=== PATIENT | female | born 1935 | race Hispanic/Latino ===

== ENCOUNTER 2018-07-20 15:44 | Inpatient (IN) | payer MEDICARE, MEDICAID ==
--- NOTE | 2018-07-20 17:02 | RAD ---
Date of service: 07/20/2018 PROCEDURE: HISTORY: fall 5 days ago, gait apraxia, ? hip/pelvic fx COMPARISON: None TECHNIQUE: AP pelvis and frog's leg view. FINDINGS: Irregularity to the inferior per left pubic ring boarding a inferior left acetabulum is noted. This may represent a fracture possibly osseous avulsion of unknown chronicity. No proximal femoral fractures seen. Bilateral hip joint arthrosis. Inferior lumbar spondylosis and degenerative disc disease. Probable tiny 2 mm right hemipelvic phleboliths. Unremarkable pubic symphysis. Right vascular calcifications IMPRESSION: Left inferior pubic ring cortical irregularity and lucency probably relating to trauma/osseous avulsion- the chronicity of this is unknown. Consider noncontrast CT of the hip including the left hemipelvis for clarification if indicated. Study marked for PA review
--- NOTE | 2018-07-20 17:05 | RAD ---
Date of service: 07/20/2018 PROCEDURE: Radiographs of the Lumbar Spine. HISTORY: fall 5 days ago, cant walk, ? comp fx COMPARISON: No prior. FINDINGS: BONES: Rightward thoracolumbar convexity. Exuberant anterior and marginal osteophytosis inferior thoracic level and lumbar levels. Probable lumbar level prominent Schmorl's node indentations. Some decreased height of the inferior thoracic spine is also noted - its chronicity also was unknown may be in large part degenerative wedging. Correlation is needed in terms of patient's site of pain. No more inferior lumbar level compression fractures suggested. DISC SPACES: Diffuse disc space narrowing at all lumbar levels OTHER FINDINGS: Facet hypertrophic arthrosis most notable from L3-4 through including L5-S1. IMPRESSION: No lumbar level suspect compression fracture. Degenerative extensive thoraco lumbar spondylosis noted. An scoliosis. Degenerative disc disease changes and exuberant facet hypertrophic arthrosis. The portions of the inferior thoracic spine which are not visually included on this exam have some mild decreased suggested vertebral body heights the chronicity of this appearance is unknown -in this patient's spine degenerative wedging is a consideration. Clinical correlation is needed in terms of patient's level of pain (thoracic or lumbar)
--- NOTE | 2018-07-20 17:08 | RAD ---
Date of service: 07/20/2018 PROCEDURE: CHEST RADIOGRAPH, 1 VIEW HISTORY: SOB COMPARISON: 11/05/2015 FINDINGS: LUNGS: No interval consolidation A 78 mm nodular opacity projects over the left lung base just above the elevated left hemidiaphragm. This is not seen with certainty on the 2015 exam. Its etiology is uncertain. Diagnosis of exclusion is a left pulmonary nodule. The is unlikely to be a nipple shadow. Although this is not excluded. PLEURA: No pneumothorax. A minimal left pleural effusion and/or chronic left inferolateral pleural thickening in this patient with a stable asymmetrically elevated left hemidiaphragm is a consideration. The blunted appearance the left costophrenic angle is not significantly changed since 2015. CARDIOVASCULAR: Cardiomegaly. Tortuous unfolded thoracic aorta. The widened mediastinal appearance is stable since 2015. Probable minimal pulmonary venous congestion -not significantly changed. OSSEOUS STRUCTURES: Diffuse thoracic upper lumbar spondylosis. VISUALIZED UPPER ABDOMEN: Normal. OTHER FINDINGS: None. IMPRESSION: 78 mm faint nodular opacity projecting just above the elevated left hemidiaphragm of indeterminate significance, if any). Not appreciated such on prior studies. Consider noncontrast CT chest for further clarification. Other changes similar as above
--- NOTE | 2018-07-20 17:12 | C.PDOC ---
History Of Present Illness 82 year old female patient brought to the ER by EMS from home with home nurse with c/o not being able to walk for x5 days. Patient reports she fell from chair and landed on her buttocks. Denies lower back and hip pain. Patient is non -compliant with Lasix due to having to urinate frequently. Patient has unknown PMD, but her nurse Emi at bedside specifically ask for Bonilla Green to treat the patient. Time Seen by Provider: 07/20/18 16:08 Chief Complaint (Nursing): Lower Extremity Problem/Injury History Per: Patient History/Exam Limitations: no limitations Onset/Duration Of Symptoms: Days (x5) Current Symptoms Are (Timing): Still Present Past Medical History Reviewed: Historical Data, Nursing Documentation, Vital Signs Vital Signs: Last Vital Signs Temp 98.8 F 07/20/18 17:40 Pulse 92 H 07/20/18 17:40 Resp 18 07/20/18 17:40 BP 153/75 H 07/20/18 17:40 Pulse Ox 97 07/20/18 18:16 - Medical History PMH: Anxiety, Arthritis, Asthma, HTN, Hypothyroidism Surgical History: Cholecystectomy - [facility] Procedures CLOSURE SKIN & SUBCUTANEOUS NEC (09/12/14) Family History: States: Unknown Family Hx - Social History Hx Tobacco Use: No Hx Alcohol Use: No Hx Substance Use: No - Immunization History Hx Tetanus Toxoid Vaccination: No Hx Influenza Vaccination: No Hx Pneumococcal Vaccination: No Review Of Systems Except As Marked, All Systems Reviewed And Found Negative. Constitutional: Positive for: Other (unable to walk) Musculoskeletal: Negative for: Back Pain, Other (hip pain) Physical Exam - Physical Exam Appears: Non-toxic, No Acute Distress, Other (elderly ) Skin: Normal Color, Warm, Dry Head: Atraumatic, Normacephalic Eye(s): bilateral: Normal Inspection Throat: Normal Neck: Normal ROM, Supple, Other (mild JVD) Chest: No Deformity Cardiovascular: Rhythm Regular, Murmur (holosystolic ) Respiratory: Rales (mild), No Rhonchi, No Wheezing Gastrointestinal/Abdominal: Soft, No Tenderness Back: No CVA Tenderness Extremity: Pedal Edema (b/l; symmetrical), No Other (cellulitis) Pulses: Left Dorsalis Pedis: Normal, Right Dorsalis Pedis: Normal Neurological/Psych: Oriented x3, Normal Speech ED Course And Treatment - Laboratory Results Result Diagrams: 07/20/18 18:46 07/20/18 18:46 Lab Interpretation: Normal (trop/bnp neg.) ECG: Interpreted By Me ECG Rhythm: Sinus Rhythm ECG Interpretation: Normal Rate From EC O2 Sat by Pulse Oximetry: 97 (RA) Pulse Ox Interpretation: Normal - Radiology CXR: Interpreted by Me CXR Interpretation: Yes: Heart Size, Other (+ mild CHF) - Other Rad XR Hip X-Ray: Read By Radiologist Interpretation: IMPRESSION: Left inferior pubic ring cortical irregularity and lucency probably relating to trauma/osseous avulsion- the chronicity of this is unknown. Consider noncontrast CT of the hip including the left hemipelvis for clarification if indicated. LS spine XR X-Ray: Read By Radiologist Interpretation: IMPRESSION: No lumbar level suspect compression fracture. Degenerative extensive thoraco lumbar spondylosis noted. An scoliosis. Degenerative disc disease changes and exuberant facet hypertrophic arthrosis. The portions of the inferior thoracic spine which are not visually included on this exam have some mild decreased suggested vertebral body heights the chronicity of this appearance is unknown -in this patient's spine degenerative wedging is a consideration. Clinical correlation is needed in terms of patient' s level of pain (thoracic or lumbar) CXR X-Ray: Read By Radiologist Interpretation: IMPRESSION: 78 mm faint nodular opacity projecting just above the elevated left hemidiaphragm of indeterminate significance, if any). Not appreciated such on prior studies. Consider noncontrast CT chest for further clarification. - CT Scan/US CT head Other Rad Studies (CT/US): Read By Radiologist, Radiology Report Reviewed CT/US Interpretation: IMPRESSION: Mild to moderate chronic white matter ischemic changes as above. Note that the possibility of a small hyperacute infarct not excluded. Mild generalized volume loss Reevaluation Time: 19:30 Reassessment Condition: Improved - Physician Consult Information Outcome Of Conversation: 1630, 1930: d/w Dr. Rachelle Green- darryn PMD- ok to admit to tele Medical Decision Making Medical Decision Making: Impression: unable to ambulate Plans: -- CT head w/o contrast -- EKG -- blood work -- CXR -- Lasix -- XR hip -- XR LS spine -- UA 3 failed attempt left EJ. Right EJ after second attempt. gait apraxia from fall 5 days ago ? deconditioned vs back pain LS and hip/pelvis films neg. JESUS ALBERTO plan for d/c. Leg edema + JVD bnp neg. CHF vs renal (low alb) lasix re-started in ED posadas for fluid output measurement IV access: poor access R EJ placed by ED MD Consider PICC line Disposition Doctor Will See Patient In The: Hospital Counseled Patient/Family Regarding: Studies Performed, Diagnosis - Disposition Disposition: HOSPITALIZED Disposition Time: 19:35 Condition: GOOD Forms: TNC (Micronesian) - Clinical Impression Clinical Impression: Leg edema, CHF (congestive heart failure), Gait apraxia of elderly - Scribe Statement The provider has reviewed the documentation as recorded by the Kishoreibnic [place] Do Provider Attestation: All medical record entries made by the Kishoreibe were at my direction and personally dictated by me. I have reviewed the chart and agree that the record accurately reflects my personal performance of the history, physical exam, medical decision making, and the department course for this patient. I have also personally directed, reviewed, and agree with the discharge instructions and disposition.
--- NOTE | 2018-07-20 17:34 | CT ---
Date of service: 07/20/2018 PROCEDURE: CT HEAD WITHOUT CONTRAST. HISTORY: Gait apraxia, fall 5 d ago, ? SDH COMPARISON: Comparison made with prior CT scan brain dated 09/13/2014. TECHNIQUE: Axial computed tomography images were obtained through the head/brain without intravenous contrast. Radiation dose: Total exam DLP = 988.04 mGy-cm. This CT exam was performed using one or more of the following dose reduction techniques: Automated exposure control, adjustment of the mA and/or kV according to patient size, and/or use of iterative reconstruction technique. FINDINGS: HEMORRHAGE: No acute parenchymal, subarachnoid nor extra-axial hemorrhage. BRAIN: Mild moderate diffuse/confluent chronic periventricular white matter ischemic changes seen extending peripherally into the deep subcortical white matter both cerebral hemispheres where peripherally, the changes exhibit more patchy appearance. Note the possibility of a small hyperacute infarct not excluded. No obvious parenchymal nor extra-axial mass or collection identified on this noncontrast study. Mild generalized volume loss. Minor vascular calcifications both carotid siphons and vertebral arteries. . VENTRICLES: No obstructive hydrocephalus. CALVARIUM: There are no acute calvarial fractures. Mild hyperostosis frontalis interna PARANASAL SINUSES: Unremarkable as visualized. No significant inflammatory changes. MASTOID AIR CELLS: Re- demonstrated are partial opacification or incomplete excavation several bilateral inferior mastoid air cells. Remaining visualized mastoid air complexes are otherwise clear OTHER FINDINGS: Changes of bilateral cataract surgery IMPRESSION: Mild to moderate chronic white matter ischemic changes as above. Note that the possibility of a small hyperacute infarct not excluded. Mild generalized volume loss
[2018-07-20 18:50] LABS: BASO % 0.5 % (0.0-2.0); EOS # 0.1 K/uL (0.0-0.7); EOS % 2.9 % (0.0-4.0); HEMOGLOBIN 12.5 g/dL (11.0-16.0); LYMPH # 1.5 K/uL (1.0-4.3); LYMPH % 44.7 % (20.0-40.0); MEAN CORPUSCULAR HEMOGLOBIN 35.9 pg (27.0-31.0); MEAN CORPUSCULAR HGB CONC 34.4 g/dL (33.0-37.0); MEAN PLATELET VOLUME 6.6 fL (7.2-11.7); MONO # 0.4 K/uL (0.0-0.8); MONO % 11.2 % (0.0-10.0); NEUT # 1.4 K/uL (1.8-7.0); NEUT % 40.7 % (50.0-75.0); NRBC % 0.2 % (0.0-2.0); RBC 3.49 Mil/uL (3.80-5.20); RED CELL DISTRIBUTION WIDTH 14.5 % (11.5-14.5); WHITE BLOOD COUNT 3.4 K/uL (4.8-10.8)
[2018-07-20 18:52] LABS: MEAN CELL VOLUME 104.4 fL (81.0-99.0)
[2018-07-20 18:58] LABS: INR 1.5; PROTHROMBIN TIME 16.7 SECONDS (9.7-12.2)
[2018-07-20 18:58] LABS: SQUAMOUS EPITHIAL < 1 /hpf (0-5); URINE BACTERIA RARE (<OCC); URINE BILIRUBIN NEGATIVE (NEGATIVE); URINE BLOOD 1+ (NEGATIVE); URINE CLARITY Clear (Clear); URINE COLOR Straw (YELLOW); URINE GLUCOSE (UA) NORMAL (Normal); URINE LEUKOCYTE ESTERASE NEG Leu/uL (Negative); URINE PROTEIN NEGATIVE (NEGATIVE); URINE UROBILINOGEN NORMAL mg/dL (0.2-1.0)
[2018-07-20 19:02] LABS: ALB/GLOB RATIO 0.9 (1.0-2.1); ALBUMIN 2.8 g/dL (3.5-5.0); ALT/SGPT 31 U/L (9-52); AST/SGOT 67 U/L (14-36); BLOOD UREA NITROGEN 12 mg/dL (7-17); CALCIUM 8.7 mg/dl (8.6-10.4); GFR NON-AFRICAN AMERICAN > 60
[2018-07-20 19:13] LABS: B-TYPE NATRIURETIC PEPTIDE 116 pg/mL (0-900)
[2018-07-20] MEDS: Vancomycin 1 gm/NS 200 ml 1 GM/200 ML BAG IVPB SCH (22:54)
--- NOTE | 2018-07-20 23:32 | CP.PCM.HP ---
Past Patient History - Past Medical History & Family History Past Medical History?: Yes - Past Social History Smoking Status: Never Smoked - CARDIAC Hx Cardiac Disorders: Yes Hx Hypertension: Yes - PULMONARY Hx Respiratory Disorders: Yes Hx Asthma: Yes - NEUROLOGICAL Hx Neurological Disorder: No - HEENT Hx HEENT Problems: No - RENAL Hx Chronic Kidney Disease: No - ENDOCRINE/METABOLIC Hx Endocrine Disorders: Yes Hx Hypothyroidism: Yes - HEMATOLOGICAL/ONCOLOGICAL Hx Blood Disorders: No - INTEGUMENTARY Hx Dermatological Problems: No - MUSCULOSKELETAL/RHEUMATOLOGICAL Hx Musculoskeletal Disorders: Yes Hx Arthritis: Yes Hx Falls: Yes - GASTROINTESTINAL Hx Gastrointestinal Disorders: No - GENITOURINARY/GYNECOLOGICAL Hx Genitourinary Disorders: No - PSYCHIATRIC Hx Psychophysiologic Disorder: Yes Hx Anxiety: Yes Hx Substance Use: No - SURGICAL HISTORY Hx Surgeries: Yes Hx Cholecystectomy: Yes - ANESTHESIA Hx Anesthesia: Yes Hx Anesthesia Reactions: No Hx Malignant Hyperthermia: No Has any member of the family had a problem w/ anesthesia?: No Meds Allergies/Adverse Reactions: Allergies Allergy/AdvReac Type Severity Reaction Status Date / Time aspirin Allergy Verified 07/20/18 16:03 codeine Allergy Verified 07/20/18 16:03 cortisone Allergy Verified 07/20/18 16:03 lidocaine Allergy Verified 07/20/18 16:03 Penicillins Allergy Verified 07/20/18 16:03 Results - Vital Signs Recent Vital Signs: Last Vital Signs Temp 98.2 F 07/20/18 21:25 Pulse 89 07/20/18 21:25 Resp 20 07/20/18 21:25 BP 149/61 07/20/18 21:25 Pulse Ox 96 07/20/18 21:25 - Labs Result Diagrams: 07/20/18 18:46 07/20/18 18:46 Labs: Laboratory Results - last 24 hr 07/20/18 07/20/18 07/20/18 16:28 18:46 18:46 WBC 3.4 L RBC 3.49 L Hgb 12.5 D Hct 36.5 MCV 104.4 H D MCH 35.9 H MCHC 34.4 RDW 14.5 Plt Count 172 D MPV 6.6 L Neut % (Auto) 40.7 L Lymph % (Auto) 44.7 H [place] % (Auto) 11.2 H Eos % (Auto) 2.9 Baso % (Auto) 0.5 Neut # (Auto) 1.4 L Lymph # (Auto) 1.5 [place] # (Auto) 0.4 Eos # (Auto) 0.1 Baso # (Auto) 0.0 PT 16.7 H INR 1.5 APTT 26 Sodium Potassium Chloride Carbon Dioxide Anion Gap BUN Creatinine Est GFR ( Amer) Est GFR (Non-Af Amer) POC Glucose (mg/dL) 114 H Random Glucose Calcium Total Bilirubin AST ALT Alkaline Phosphatase Troponin I NT-Pro-B Natriuret Pep Total Protein Albumin Globulin Albumin/Globulin Ratio Urine Color Urine Clarity Urine pH Ur Specific [place] Urine Protein Urine Glucose (UA) Urine Ketones Urine Blood Urine Nitrate Urine Bilirubin Urine Urobilinogen Ur Leukocyte Esterase Urine WBC (Auto) Urine RBC (Auto) Ur Squamous Epith Cells Urine Bacteria 07/20/18 07/20/18 18:46 18:51 WBC RBC Hgb Hct MCV MCH MCHC RDW Plt Count MPV Neut % (Auto) Lymph % (Auto) [place] % (Auto) Eos % (Auto) Baso % (Auto) Neut # (Auto) Lymph # (Auto) [place] # (Auto) Eos # (Auto) Baso # (Auto) PT INR APTT Sodium 144 Potassium 3.7 Chloride 111 H Carbon Dioxide 28 Anion Gap 9 L BUN 12 Creatinine 0.5 L Est GFR ( Amer) > 60 Est GFR (Non-Af Amer) > 60 POC Glucose (mg/dL) Random Glucose 77 Calcium 8.7 Total Bilirubin 2.8 H AST 67 H ALT 31 Alkaline Phosphatase 122 Troponin I < 0.0120 NT-Pro-B Natriuret Pep 116 Total Protein 5.9 L Albumin 2.8 L Globulin 3.2 Albumin/Globulin Ratio 0.9 L Urine Color Straw Urine Clarity Clear Urine pH 7.0 Ur Specific [place] 1.003 Urine Protein Negative Urine Glucose (UA) Normal Urine Ketones Negative Urine Blood 1+ H Urine Nitrate Negative Urine Bilirubin Negative Urine Urobilinogen Normal Ur Leukocyte Esterase Neg Urine WBC (Auto) < 1 Urine RBC (Auto) 2 Ur Squamous Epith Cells < 1 Urine Bacteria Rare
[2018-07-21] MEDS: Albuterol-Ipratrop 3 mg / 0.5 (3 ml) UD INH SCH ×4 (06:01→19:36)
[2018-07-21] MEDS: Pantoprazole 40 mg EC Tab PO SCH (09:12)
--- NOTE | 2018-07-21 10:49 | CP.PCM.PN ---
Subjective - Date & Time of Evaluation Date of Evaluation: 07/21/18 Time of Evaluation: 13:02 - Subjective Subjective: PGY 3 Med Note- Dr. Rachelle Green's service CC: leg pain 82 year old female with past medical history significant for HTN, asthma, arthritis and suspected lymphedema presents with complaints of leg pain. Patient states that she sustained a fall approximately 2 weeks ago. Per ED note , she fell from a chair and landed on her rear end. Patient has been unable to walk at her norm for the past five days. Patient admits to leg pain, tender to palpation with difficulties ambulating. Patient is not able to provide a thorough history at this time. Difficult to obtain ROS as well. PMHx- as stated above- though limited PSHx- knee surgery, cholecystecomy and appendectomy Fam Hx- Unknown Medications- Patient is unsure Scoail- Former smoker of 1 pack every 2 days. Patient smoked over 40 years ago. Denies alcohol or illicit drug use. Allergies- Penicillin ( patient unsure) Objective - Vital Signs/Intake and Output Vital Signs (last 24 hours): Temp Pulse Resp BP Pulse Ox 98.3 F 87 20 125/63 96 07/21/18 07:35 07/21/18 07:35 07/21/18 07:35 07/21/18 07:35 07/21/18 07:35 Intake and Output: 07/21/18 07/21/18 06:59 18:59 Output Total 1999 -1999 - Medications Medications: Current Medications Albuterol/Ipratropium (Duoneb 3 Mg/0.5 Mg (3 Ml) Ud) 3 ml INH RQ6 [facility] Last Admin: 07/21/18 08:30 Dose: Not Given Amlodipine Besylate (Norvasc) 5 mg PO DAILY [facility] Last Admin: 07/21/18 09:13 Dose: 5 mg Furosemide (Lasix) 40 mg IVP DAILY [facility] Heparin Sodium (Porcine) (Heparin) 5,000 units SC Q12 [facility] Last Admin: 07/21/18 09:12 Dose: 5,000 units Vancomycin/Sodium Chloride (Vancomycin 1 Gm/Ns 200 Ml) 1 gm in 200 mls @ 133.333 mls/hr IVPB Q24H [facility] PRN Reason: Protocol Stop: 07/25/18 23:01 Last Admin: 07/20/18 22:54 Dose: 133.333 mls/hr Lactulose (Enulose) 20 gm PO DAILY [facility] Last Admin: 07/21/18 09:12 Dose: 20 gm Lorazepam (Ativan) 0.5 mg PO Q12 PRN PRN Reason: Anxiety Metformin HCl (Glucophage) 500 mg PO BID [facility] Last Admin: 07/21/18 09:12 Dose: 500 mg Pantoprazole Sodium (Protonix Ec Tab) 40 mg PO DAILY [facility] Last Admin: 07/21/18 09:12 Dose: 40 mg Sertraline HCl (Zoloft) 50 mg PO BID [facility] Last Admin: 07/21/18 09:12 Dose: 50 mg - Labs Labs: 07/20/18 18:46 07/20/18 18:46 PT 16.7 SECONDS (9.7-12.2) H 07/20/18 18:46 INR 1.5 07/20/18 18:46 APTT 26 SECONDS (21-34) 07/20/18 18:46 - Constitutional Appears: No Acute Distress - Head Exam Head Exam: ATRAUMATIC - Eye Exam Eye Exam: EOMI Pupil Exam: NORMAL ACCOMODATION - ENT Exam ENT Exam: Mucous Membranes Moist - Neck Exam Neck Exam: Full ROM - Respiratory Exam Respiratory Exam: NORMAL BREATHING PATTERN - Cardiovascular Exam Cardiovascular Exam: +S1, +S2 - GI/Abdominal Exam GI & Abdominal Exam: Soft, Normal Bowel Sounds - Extremities Exam Extremities Exam: absent: Full ROM Additional comments: lymphedema noted in upper extremities and lower extremities bilaterally - Back Exam Back Exam: Full ROM - Neurological Exam Neurological Exam: Alert, Awake, Oriented x3 - Psychiatric Exam Psychiatric exam: Normal Affect, Normal Mood - Skin Skin Exam: Dry, Erythema (bilateral shins), Intact Assessment and Plan (1) Fall Assessment & Plan: Recent Fall F/U imaging. Rule out cardiac etiology. F/U echo. F/U Cardio recommendations F/U with PT and OT F/U with case management about home living situation Status: Acute (2) Cellulitis Assessment & Plan: On Vanc-Patient allergic to PCN at this time. F/U vanc trough and AM labs F/U additional ID recommendations Status: Chronic (3) Lymphedema Assessment & Plan: F/U dopplers Physical Therapy- F/U Elevate extremities Compression stockings Lymphatic drainage management mechanisms F/U ID recommendations in light of concurrent cellulitis Status: Chronic (4) Hypertension Assessment & Plan: Norvasc 5 mg PO daily Monitor Status: Chronic (5) Prophylactic measure Assessment & Plan: Heparin SC Q12 PPI 40 mg PO daily Status: Acute
--- NOTE | 2018-07-21 11:31 | CP.PCM.CON ---
History of Present Illness - History of Present Illness History of Present Illness: 82 y/o female: Had a trip and fall on a slippery floor denies CP or angina NYHA 2-3 at baseline due to comorbidities, uses a walker denies palpitation or syncope or LOC Has chronic venous changes in legs with a component of lymphedema and LE cellulitis PMH: Anxiety, Arthritis, Asthma, HTN, Hypothyroidism Surgical History: Cholecystectomy Review of Systems - Review of Systems All systems: reviewed and no additional remarkable complaints except Past Patient History - Past Medical History & Family History Past Medical History?: Yes - Past Social History Smoking Status: Never Smoked - CARDIAC Hx Cardiac Disorders: Yes Hx Hypertension: Yes - PULMONARY Hx Respiratory Disorders: Yes Hx Asthma: Yes - NEUROLOGICAL Hx Neurological Disorder: No - HEENT Hx HEENT Problems: No - RENAL Hx Chronic Kidney Disease: No - ENDOCRINE/METABOLIC Hx Endocrine Disorders: Yes Hx Hypothyroidism: Yes - HEMATOLOGICAL/ONCOLOGICAL Hx Blood Disorders: No - INTEGUMENTARY Hx Dermatological Problems: No - MUSCULOSKELETAL/RHEUMATOLOGICAL Hx Musculoskeletal Disorders: Yes Hx Arthritis: Yes Hx Falls: Yes - GASTROINTESTINAL Hx Gastrointestinal Disorders: No - GENITOURINARY/GYNECOLOGICAL Hx Genitourinary Disorders: No - PSYCHIATRIC Hx Psychophysiologic Disorder: Yes Hx Anxiety: Yes Hx Substance Use: No - SURGICAL HISTORY Hx Surgeries: Yes Hx Cholecystectomy: Yes - ANESTHESIA Hx Anesthesia: Yes Hx Anesthesia Reactions: No Hx Malignant Hyperthermia: No Has any member of the family had a problem w/ anesthesia?: No Meds Allergies/Adverse Reactions: Allergies Allergy/AdvReac Type Severity Reaction Status Date / Time aspirin Allergy Verified 07/20/18 16:03 codeine Allergy Verified 07/20/18 16:03 cortisone Allergy Verified 07/20/18 16:03 lidocaine Allergy Verified 07/20/18 16:03 Penicillins Allergy Verified 07/20/18 16:03 - Medications Medications: Current Medications Albuterol/Ipratropium (Duoneb 3 Mg/0.5 Mg (3 Ml) Ud) 3 ml INH RQ6 [facility] Last Admin: 07/21/18 08:30 Dose: Not Given Amlodipine Besylate (Norvasc) 5 mg PO DAILY [facility] Last Admin: 07/21/18 09:13 Dose: 5 mg Furosemide (Lasix) 40 mg IVP DAILY [facility] Last Admin: 07/21/18 11:15 Dose: 40 mg Heparin Sodium (Porcine) (Heparin) 5,000 units SC Q12 [facility] Last Admin: 07/21/18 09:12 Dose: 5,000 units Vancomycin/Sodium Chloride (Vancomycin 1 Gm/Ns 200 Ml) 1 gm in 200 mls @ 133.333 mls/hr IVPB Q24H [facility] PRN Reason: Protocol Stop: 07/25/18 23:01 Last Admin: 07/20/18 22:54 Dose: 133.333 mls/hr Lactulose (Enulose) 20 gm PO DAILY [facility] Last Admin: 07/21/18 09:12 Dose: 20 gm Lorazepam (Ativan) 0.5 mg PO Q12 PRN PRN Reason: Anxiety Last Admin: 07/21/18 11:20 Dose: 0.5 mg Metformin HCl (Glucophage) 500 mg PO BID [facility] Last Admin: 07/21/18 09:12 Dose: 500 mg Pantoprazole Sodium (Protonix Ec Tab) 40 mg PO DAILY [facility] Last Admin: 07/21/18 09:12 Dose: 40 mg Sertraline HCl (Zoloft) 50 mg PO BID [facility] Last Admin: 07/21/18 09:12 Dose: 50 mg Physical Exam - Constitutional Appears: No Acute Distress, Chronically Ill - Head Exam Head Exam: ATRAUMATIC, NORMAL INSPECTION, NORMOCEPHALIC - Eye Exam Eye Exam: Normal appearance - ENT Exam ENT Exam: Mucous Membranes Moist. absent: Normal Exam (dentures) - Neck Exam Neck exam: Positive for: Full Rom, Normal Inspection - Respiratory Exam Respiratory Exam: Clear to Auscultation Bilateral. absent: Rhonchi, Wheezes - Cardiovascular Exam Cardiovascular Exam: REGULAR RHYTHM, +S1, +S2, Systolic Murmur (soft SM 2/6 upper parasternal border) - GI/Abdominal Exam GI & Abdominal Exam: Normal Bowel Sounds, Soft - Extremities Exam Extremities exam: Negative for: calf tenderness, normal inspection (CEAP 4-5 venous stasis changes, superimposed cellulitis and lymphedema changes to feet) - Psychiatric Exam Psychiatric exam: Normal Affect, Normal Mood - Skin Skin Exam: Warm Results - Vital Signs Recent Vital Signs: Last Vital Signs Temp 98.3 F 07/21/18 07:35 Pulse 87 07/21/18 07:35 Resp 20 07/21/18 07:35 BP 121/66 07/21/18 11:15 Pulse Ox 96 07/21/18 07:35 - Labs Result Diagrams: 07/22/18 06:46 07/22/18 06:46 Labs: Laboratory Results - last 24 hr 07/20/18 07/20/18 07/20/18 16:28 18:46 18:46 WBC 3.4 L RBC 3.49 L Hgb 12.5 D Hct 36.5 MCV 104.4 H D MCH 35.9 H MCHC 34.4 RDW 14.5 Plt Count 172 D MPV 6.6 L Neut % (Auto) 40.7 L Lymph % (Auto) 44.7 H [place] % (Auto) 11.2 H Eos % (Auto) 2.9 Baso % (Auto) 0.5 Neut # (Auto) 1.4 L Lymph # (Auto) 1.5 [place] # (Auto) 0.4 Eos # (Auto) 0.1 Baso # (Auto) 0.0 PT 16.7 H INR 1.5 APTT 26 Sodium Potassium Chloride Carbon Dioxide Anion Gap BUN Creatinine Est GFR ( Amer) Est GFR (Non-Af Amer) POC Glucose (mg/dL) 114 H Random Glucose Calcium Total Bilirubin AST ALT Alkaline Phosphatase Troponin I NT-Pro-B Natriuret Pep Total Protein Albumin Globulin Albumin/Globulin Ratio Urine Color Urine Clarity Urine pH Ur Specific [place] Urine Protein Urine Glucose (UA) Urine Ketones Urine Blood Urine Nitrate Urine Bilirubin Urine Urobilinogen Ur Leukocyte Esterase Urine WBC (Auto) Urine RBC (Auto) Ur Squamous Epith Cells Urine Bacteria 07/20/18 07/20/18 18:46 18:51 WBC RBC Hgb Hct MCV MCH MCHC RDW Plt Count MPV Neut % (Auto) Lymph % (Auto) [place] % (Auto) Eos % (Auto) Baso % (Auto) Neut # (Auto) Lymph # (Auto) [place] # (Auto) Eos # (Auto) Baso # (Auto) PT INR APTT Sodium 144 Potassium 3.7 Chloride 111 H Carbon Dioxide 28 Anion Gap 9 L BUN 12 Creatinine 0.5 L Est GFR ( Amer) > 60 Est GFR (Non-Af Amer) > 60 POC Glucose (mg/dL) Random Glucose 77 Calcium 8.7 Total Bilirubin 2.8 H AST 67 H ALT 31 Alkaline Phosphatase 122 Troponin I < 0.0120 NT-Pro-B Natriuret Pep 116 Total Protein 5.9 L Albumin 2.8 L Globulin 3.2 Albumin/Globulin Ratio 0.9 L Urine Color Straw Urine Clarity Clear Urine pH 7.0 Ur Specific [place] 1.003 Urine Protein Negative Urine Glucose (UA) Normal Urine Ketones Negative Urine Blood 1+ H Urine Nitrate Negative Urine Bilirubin Negative Urine Urobilinogen Normal Ur Leukocyte Esterase Neg Urine WBC (Auto) < 1 Urine RBC (Auto) 2 Ur Squamous Epith Cells < 1 Urine Bacteria Rare - EKG Data EKG Interpreted by: Myself Assessment & Plan - Assessment and Plan (Free Text) Assessment: Diagnostic images performed have been directly visualized by me and summarized as follows: CXR: no effusion or infiltrate, ? nodule Left CT head: microvascular changes, ? hypercute small infarct noted XRAY: Hip and spine: DJD, L. oubic ramus avulsion unknown acuity reported EKG: NSR, PAC, no acute ischemic changes Labs: Normal creat, TROp negative Impression Mechanical fall NSR no arrythmias on EKG LE edema/cellulitis/venous stasis/?l lymphedema :> wound care, abx, DVT prophylaxis f/u echo to eval cardiac structure and function Lasix PT sleep apnea eval
--- NOTE | 2018-07-21 12:25 | CP.PCM.CON ---
History of Present Illness - History of Present Illness History of Present Illness: 82 year old female patient brought to the ER by EMS from home with home nurse with c/o not being able to walk for x5 days. Patient reports she fell from chair and landed on her buttocks. Denies lower back and hip pain. Patient is non -compliant with Lasix due to having to urinate frequently. referred for ID eval of cellulitis RLE denies fever chills cough or SOB + leg swelling severe arthritis - Medical History PMH: Anxiety, Arthritis, Asthma, HTN, Hypothyroidism Surgical History: Cholecystectomy - [facility] Procedures CLOSURE SKIN & SUBCUTANEOUS NEC (09/12/14) Review of Systems - Review of Systems All systems: reviewed and no additional remarkable complaints except - Constitutional Constitutional: As Per HPI - EENT Eyes: absent: As Per HPI, Blind Spots, Blurred Vision, Change in Vision, Decreased Night Vision, Diplopia, Discharge, Dry Eye, Exophthalmos, Floaters, Irritation, Itchy Eyes, Loss of Peripheral Vision, Pain, Photophobia, Requires Corrective Lenses, Sees Flashes, Spots in Vision, Tunnel Vision, Other Visual Disturbances, Loss of Vision, Other Ears: absent: As Per HPI, Decreased Hearing, Ear Discharge, Ear Pain, Tinnitus, Abnormal Hearing, Disequilibrium, Dizziness, Other Nose/Mouth/Throat: absent: As Per HPI, Epistaxis, Nasal Congestion, Nasal Discharge, Nasal Obstruction, Nasal Trauma, Nose Pain, Post Nasal Drip, Sinus Pain, Sinus Pressure, Bleeding Gums, Change in Voice, Dental Pain, Dry Mouth, Dysphagia, Halitosis, Hoarsness, Lip Swelling, Mouth Lesions, Mouth Pain, Odynophagia, Sore Throat, Throat Swelling, Tongue Swelling, Facial Pain, Neck Pain, Neck Mass, Other - Breasts Breasts: absent: As Per HPI, Change in Shape, Mass, Pain, Nipple Discharge, Nipple Inversion, Skin Changes, Swelling, Other - Cardiovascular Cardiovascular: absent: As Per HPI, Acrocyanosis, Chest Pain, Chest Pain at Rest , Chest Pain with Activity, Claudication, Diaphoresis, Dyspnea, Dyspnea on Exertion, Edema, Irregular Heart Rhythm, Pain Radiating to Arm/Neck/Jaw, Leg Edema, Leg Ulcers, Lightheadedness, Orthopnea, Palpitations, Paroxysmal Nocturnal Dyspnea, Pedal Edema, Radiating Pain, Rapid Heart Rate, Slow Heart Rate, Syncope, Other - Respiratory Respiratory: absent: As Per HPI, Cough, Dyspnea, Hemoptysis, Dyspnea on Exertion , Wheezing, Snoring, Stridor, Pain on Inspiration, Chest Congestion, Excessive Mucous Production, Change in Mucous Color, Pain with Coughing, Other - Gastrointestinal Gastrointestinal: absent: As Per HPI, Abdominal Pain, Belching, Bloating, Change in Bowel Habits, Change in Stool Character, Coffee Ground Emesis, Constipation, Cramping, Diarrhea, Dyspepsia, Dysphagia, Early Satiety, Excessive Flatus, Fecal Incontinence, Heartburn, Hematemesis, Hematochezia, Loose Stools, Melena, Nausea, Odynophagia, Temesmus, Vomiting, Other - Genitourinary Genitourinary: absent: As Per HPI, Change in Urinary Stream, Difficulty Urinating, Dysuria, Flank Pain, Hematuria, Pyuria, Nocturia, Urinary Incontinence, Urinary Frequency, Urinary Hesitance, Urinary Urgency, Voiding Freq/Small Amts, Freq UTI, Hx Renal/Bladder Calculi, Hx /Renal Surgery, Bladder Distension, Other - Reproductive: Female Reproductive:Female: absent: As Per HPI, Amenorrhea, Amenorrhea/ Control, Currently Menstual, Cycle <21 Days, Cycle >35 Days, Cycle Variable, Menses 1-7 Days, Menses >/= 8 Days, Menses Variable, Cycle > 4 Weeks Between, No Menses for 6 Months, Heavy Menses, Light Menses, Normal Menses, Spotting Between Cycles , S/P Hysterectomy, Menopausal, Post Menopausal, Premenarche, Abnormal Vaginal Bleeding, Dysmenorrhea, Dyspareunia, Genital Lesions, Genital Pruritis, Pelvic Pain, Prolapse Symptoms, Sexual Dysfunction, Vaginal Discharge, Vaginal Dryness , Vaginal Odor, Vaginal Pruritis, Other - Menstruation Menstruation: absent: As Per HPI, Amenorrhea, Amenorrhea/ Control, Currently Menstual, Cycle <21 Days, Cycle >35 Days, Cycle Variable, Menses 1-7 Days, Menses >/= 8 Days, Menses Variable, Cycle > 4 Weeks Between, No Menses for 6 Months, Heavy Menses, Light Menses, Normal Menses, Spotting Between Cycles , S/P Hysterectomy, Menopausal, Post Menopausal, Premenarche, Abnormal Vaginal Bleeding, Dysmenorrhea, Other - Musculoskeletal Musculoskeletal: As Per HPI - Integumentary Integumentary: As Per HPI, Skin Pain - Neurological Neurological: absent: As Per HPI, Abnormal Gait, Abnormal Hearing, Abnormal Movements, Abnormal Speech, Behavioral Changes, Burning Sensations, Confusion, Convulsions, Disequilibrium, Dizziness, Numbness, Focal Weakness, Frequent Falls , Headaches, Lack of Coordination, Loss of Vision, Memory Loss, Paresthesias, Radicular Pain, Restless Legs, Sensory Deficit, Syncope, Tingling, Tremor, Vertigo, Weakness, Other Visual Disturbances, Other - Psychiatric Psychiatric: absent: As Per HPI, Abnormal Sleep Pattern, Anhedonia, Anxiety, Auditory Hallucinations, Behavioral Changes, Change in Appetite, Change in Libido, Confusion, Depression, Difficulty Concentrating, Hallucinations, Homicidal Ideation, Hopelessness, Irritability, Memory Loss, Mood Swings, Panic Attacks, Paranoia, Suicidal Ideation, Visual Hallucinations, Tactile Hallucinations, Other - Endocrine Endocrine: absent: As Per HPI, Change in Body Appearance, Change in Libido, Cold Intolorance, Deepening of Voice, Excessive Sweating, Fatigue, Flushing, Heat Intolorance, Increase in Ring/Shoe/Hat Size, Palpitations, Polydipsia, Polyphagia, Polyuria, Other - Hematologic/Lymphatic Hematologic: absent: As Per HPI, Easy Bleeding, Easy Bruising, Lymphadenopathy, Other Past Patient History - Past Medical History & Family History Past Medical History?: Yes - Past Social History Smoking Status: Never Smoked - CARDIAC Hx Cardiac Disorders: Yes Hx Hypertension: Yes - PULMONARY Hx Respiratory Disorders: Yes Hx Asthma: Yes - NEUROLOGICAL Hx Neurological Disorder: No - HEENT Hx HEENT Problems: No - RENAL Hx Chronic Kidney Disease: No - ENDOCRINE/METABOLIC Hx Endocrine Disorders: Yes Hx Hypothyroidism: Yes - HEMATOLOGICAL/ONCOLOGICAL Hx Blood Disorders: No - INTEGUMENTARY Hx Dermatological Problems: No - MUSCULOSKELETAL/RHEUMATOLOGICAL Hx Musculoskeletal Disorders: Yes Hx Arthritis: Yes Hx Falls: Yes - GASTROINTESTINAL Hx Gastrointestinal Disorders: No - GENITOURINARY/GYNECOLOGICAL Hx Genitourinary Disorders: No - PSYCHIATRIC Hx Psychophysiologic Disorder: Yes Hx Anxiety: Yes Hx Substance Use: No - SURGICAL HISTORY Hx Surgeries: Yes Hx Cholecystectomy: Yes - ANESTHESIA Hx Anesthesia: Yes Hx Anesthesia Reactions: No Hx Malignant Hyperthermia: No Has any member of the family had a problem w/ anesthesia?: No Meds Allergies/Adverse Reactions: Allergies Allergy/AdvReac Type Severity Reaction Status Date / Time aspirin Allergy Verified 07/20/18 16:03 codeine Allergy Verified 07/20/18 16:03 cortisone Allergy Verified 07/20/18 16:03 lidocaine Allergy Verified 07/20/18 16:03 Penicillins Allergy Verified 07/20/18 16:03 - Medications Medications: Current Medications Albuterol/Ipratropium (Duoneb 3 Mg/0.5 Mg (3 Ml) Ud) 3 ml INH RQ6 [facility] Last Admin: 07/21/18 08:30 Dose: Not Given Amlodipine Besylate (Norvasc) 5 mg PO DAILY [facility] Last Admin: 07/21/18 09:13 Dose: 5 mg Furosemide (Lasix) 40 mg IVP DAILY [facility] Last Admin: 07/21/18 11:15 Dose: 40 mg Heparin Sodium (Porcine) (Heparin) 5,000 units SC Q12 [facility] Last Admin: 07/21/18 09:12 Dose: 5,000 units Vancomycin/Sodium Chloride (Vancomycin 1 Gm/Ns 200 Ml) 1 gm in 200 mls @ 133.333 mls/hr IVPB Q24H [facility] PRN Reason: Protocol Stop: 07/25/18 23:01 Last Admin: 07/20/18 22:54 Dose: 133.333 mls/hr Lactulose (Enulose) 20 gm PO DAILY [facility] Last Admin: 07/21/18 09:12 Dose: 20 gm Lorazepam (Ativan) 0.5 mg PO Q12 PRN PRN Reason: Anxiety Last Admin: 07/21/18 11:20 Dose: 0.5 mg Metformin HCl (Glucophage) 500 mg PO BID [facility] Last Admin: 07/21/18 09:12 Dose: 500 mg Pantoprazole Sodium (Protonix Ec Tab) 40 mg PO DAILY [facility] Last Admin: 07/21/18 09:12 Dose: 40 mg Sertraline HCl (Zoloft) 50 mg PO BID [facility] Last Admin: 07/21/18 09:12 Dose: 50 mg Physical Exam - Constitutional Appears: Non-toxic, No Acute Distress, Chronically Ill - Head Exam Head Exam: NORMOCEPHALIC - Eye Exam Eye Exam: PERRL. absent: Scleral icterus - ENT Exam ENT Exam: Mucous Membranes Dry - Neck Exam Neck exam: Negative for: Lymphadenopathy - Respiratory Exam Respiratory Exam: Decreased Breath Sounds, Clear to Auscultation Bilateral - Cardiovascular Exam Cardiovascular Exam: REGULAR RHYTHM, +S1, +S2 - GI/Abdominal Exam GI & Abdominal Exam: Diminished Bowel Sounds, Soft. absent: Tenderness - Rectal Exam Rectal Exam: Deferred - Exam Exam: NORMAL INSPECTION - Extremities Exam Extremities exam: Positive for: pedal edema, tenderness, pedal pulses present. Negative for: calf tenderness - Back Exam Back exam: absent: CVA tenderness (L), CVA tenderness (R), paraspinal tenderness - Neurological Exam Neurological exam: Alert, CN II-XII Intact, Oriented x3, Reflexes Normal - Psychiatric Exam Psychiatric exam: Depressed - Skin Skin Exam: Dry, Erythema Results - Vital Signs Recent Vital Signs: Last Vital Signs Temp 98.3 F 07/21/18 07:35 Pulse 87 07/21/18 07:35 Resp 20 07/21/18 07:35 BP 121/66 07/21/18 11:15 Pulse Ox 96 07/21/18 07:35 - Labs Result Diagrams: 07/20/18 18:46 07/20/18 18:46 Labs: Laboratory Results - last 24 hr 07/20/18 07/20/18 07/20/18 16:28 18:46 18:46 WBC 3.4 L RBC 3.49 L Hgb 12.5 D Hct 36.5 MCV 104.4 H D MCH 35.9 H MCHC 34.4 RDW 14.5 Plt Count 172 D MPV 6.6 L Neut % (Auto) 40.7 L Lymph % (Auto) 44.7 H [place] % (Auto) 11.2 H Eos % (Auto) 2.9 Baso % (Auto) 0.5 Neut # (Auto) 1.4 L Lymph # (Auto) 1.5 [place] # (Auto) 0.4 Eos # (Auto) 0.1 Baso # (Auto) 0.0 PT 16.7 H INR 1.5 APTT 26 Sodium Potassium Chloride Carbon Dioxide Anion Gap BUN Creatinine Est GFR ( Amer) Est GFR (Non-Af Amer) POC Glucose (mg/dL) 114 H Random Glucose Calcium Total Bilirubin AST ALT Alkaline Phosphatase Troponin I NT-Pro-B Natriuret Pep Total Protein Albumin Globulin Albumin/Globulin Ratio Urine Color Urine Clarity Urine pH Ur Specific [place] Urine Protein Urine Glucose (UA) Urine Ketones Urine Blood Urine Nitrate Urine Bilirubin Urine Urobilinogen Ur Leukocyte Esterase Urine WBC (Auto) Urine RBC (Auto) Ur Squamous Epith Cells Urine Bacteria 07/20/18 07/20/18 18:46 18:51 WBC RBC Hgb Hct MCV MCH MCHC RDW Plt Count MPV Neut % (Auto) Lymph % (Auto) [place] % (Auto) Eos % (Auto) Baso % (Auto) Neut # (Auto) Lymph # (Auto) [place] # (Auto) Eos # (Auto) Baso # (Auto) PT INR APTT Sodium 144 Potassium 3.7 Chloride 111 H Carbon Dioxide 28 Anion Gap 9 L BUN 12 Creatinine 0.5 L Est GFR ( Amer) > 60 Est GFR (Non-Af Amer) > 60 POC Glucose (mg/dL) Random Glucose 77 Calcium 8.7 Total Bilirubin 2.8 H AST 67 H ALT 31 Alkaline Phosphatase 122 Troponin I < 0.0120 NT-Pro-B Natriuret Pep 116 Total Protein 5.9 L Albumin 2.8 L Globulin 3.2 Albumin/Globulin Ratio 0.9 L Urine Color Straw Urine Clarity Clear Urine pH 7.0 Ur Specific [place] 1.003 Urine Protein Negative Urine Glucose (UA) Normal Urine Ketones Negative Urine Blood 1+ H Urine Nitrate Negative Urine Bilirubin Negative Urine Urobilinogen Normal Ur Leukocyte Esterase Neg Urine WBC (Auto) < 1 Urine RBC (Auto) 2 Ur Squamous Epith Cells < 1 Urine Bacteria Rare Assessment & Plan (1) CHF (congestive heart failure) Status: Acute (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
--- NOTE | 2018-07-21 17:59 | CARD ---
APPROVED REPORT Date of service: 07/20/2018 EKG Measurement Heart [id number] <Conclusion> Sinus rhythm with premature atrial complexes Minimal voltage criteria for LVH, may be normal variant Inferior infarct, age undetermined Abnormal ECG
--- NOTE | 2018-07-21 20:27 | CP.PCM.PN ---
Subjective - Date & Time of Evaluation Date of Evaluation: 07/21/18 Time of Evaluation: 10:15 - Subjective Subjective: clinically same Objective - Vital Signs/Intake and Output Vital Signs (last 24 hours): Temp Pulse Resp BP Pulse Ox 97.2 F L 93 H 20 101/57 L 94 L 07/21/18 15:00 07/21/18 15:00 07/21/18 15:00 07/21/18 15:00 07/21/18 15:00 Intake and Output: 07/21/18 07/22/18 18:59 06:59 Intake Total 320 Output Total 1300 Balance -980 - Medications Medications: Current Medications Albuterol/Ipratropium (Duoneb 3 Mg/0.5 Mg (3 Ml) Ud) 3 ml INH RQ6 [facility] Last Admin: 07/21/18 19:36 Dose: 3 ml Amlodipine Besylate (Norvasc) 5 mg PO DAILY [facility] Last Admin: 07/21/18 09:13 Dose: 5 mg Furosemide (Lasix) 40 mg IVP DAILY [facility] Last Admin: 07/21/18 11:15 Dose: 40 mg Heparin Sodium (Porcine) (Heparin) 5,000 units SC Q12 [facility] Last Admin: 07/21/18 09:12 Dose: 5,000 units Vancomycin/Sodium Chloride (Vancomycin 1 Gm/Ns 200 Ml) 1 gm in 200 mls @ 133.333 mls/hr IVPB Q24H [facility] PRN Reason: Protocol Stop: 07/25/18 23:01 Last Admin: 07/20/18 22:54 Dose: 133.333 mls/hr Lactulose (Enulose) 20 gm PO DAILY [facility] Last Admin: 07/21/18 09:12 Dose: 20 gm Lorazepam (Ativan) 0.5 mg PO Q12 PRN PRN Reason: Anxiety Last Admin: 07/21/18 11:20 Dose: 0.5 mg Metformin HCl (Glucophage) 500 mg PO BID [facility] Last Admin: 07/21/18 17:14 Dose: Not Given Mupirocin (Bactroban Ointment) 1 gm TOP BID [facility] Pantoprazole Sodium (Protonix Ec Tab) 40 mg PO DAILY [facility] Last Admin: 07/21/18 09:12 Dose: 40 mg Sertraline HCl (Zoloft) 50 mg PO BID [facility] Last Admin: 08/24/18 18:09 Dose: Not Given - Labs Labs: 07/20/18 18:46 07/20/18 18:46 PT 16.7 SECONDS (9.7-12.2) H 07/20/18 18:46 INR 1.5 07/20/18 18:46 APTT 26 SECONDS (21-34) 07/20/18 18:46 - Constitutional Appears: Well - Head Exam Head Exam: ATRAUMATIC, NORMAL INSPECTION, NORMOCEPHALIC - Eye Exam Eye Exam: EOMI, Normal appearance, PERRL Pupil Exam: NORMAL ACCOMODATION, PERRL - ENT Exam ENT Exam: Mucous Membranes Moist, Normal Exam - Neck Exam Neck Exam: Full ROM, Normal Inspection. absent: Lymphadenopathy - Respiratory Exam Respiratory Exam: Decreased Breath Sounds - Cardiovascular Exam Cardiovascular Exam: REGULAR RHYTHM, +S1, +S2 - GI/Abdominal Exam GI & Abdominal Exam: Soft, Diminished Bowel Sounds - Rectal Exam Rectal Exam: Deferred
[2018-07-21] MEDS: Vancomycin 1 gm/NS 200 ml 1 GM/200 ML BAG IVPB SCH (22:14)
[2018-07-22] MEDS ORDERED: Alum-Mag Hydrox-Simethicone Susp (30 mL) PO STA (00:11)
[2018-07-22] MEDS: Albuterol-Ipratrop 3 mg / 0.5 (3 ml) UD INH SCH ×4 (01:18→20:01)
[2018-07-22 07:16] LABS: BASO % 0.2 % (0.0-2.0); EOS % 0.2 % (0.0-4.0); HEMOGLOBIN 12.1 g/dL (11.0-16.0); LYMPH # 0.8 K/uL (1.0-4.3); LYMPH % 23.7 % (20.0-40.0); MEAN CELL VOLUME 104.3 fL (81.0-99.0); MEAN CORPUSCULAR HEMOGLOBIN 36.9 pg (27.0-31.0); MEAN CORPUSCULAR HGB CONC 35.4 g/dL (33.0-37.0); MEAN PLATELET VOLUME 6.9 fL (7.2-11.7); MONO # 0.1 K/uL (0.0-0.8); MONO % 3.6 % (0.0-10.0); NEUT # 2.6 K/uL (1.8-7.0); NEUT % 72.3 % (50.0-75.0); NRBC % 0.2 % (0.0-2.0); RBC 3.29 Mil/uL (3.80-5.20); RED CELL DISTRIBUTION WIDTH 14.9 % (11.5-14.5); WHITE BLOOD COUNT 3.5 K/uL (4.8-10.8)
[2018-07-22 07:25] LABS: ALB/GLOB RATIO 0.8 (1.0-2.1); ALBUMIN 2.6 g/dL (3.5-5.0); ALT/SGPT 26 U/L (9-52); AST/SGOT 72 U/L (14-36); BLOOD UREA NITROGEN 15 mg/dL (7-17); CALCIUM 8.5 mg/dl (8.6-10.4); GFR NON-AFRICAN AMERICAN > 60
[2018-07-22 08:23] LABS: FOLATE > 20.0 ng/mL
[2018-07-22] MEDS: Pantoprazole 40 mg EC Tab PO SCH (09:54)
--- NOTE | 2018-07-22 14:24 | CT ---
Date of service: 07/22/2018 PROCEDURE: CT of the Left Hip. HISTORY: hip pain , r/o fracture COMPARISON: Plain radiographs 07/20/2018. TECHNIQUE: Contiguous axial images of the left hip were obtained. Coronal and sagittal reformats were generated. This CT exam was performed using one or more of the following dose reduction techniques: Automated exposure control, adjustment of the mA and/or kV according to patient size, and/or use of iterative reconstruction technique. FINDINGS: BONES: There is diffuse bone demineralization. There is an acute comminuted mildly displaced fracture in the lateral aspect of the left inferior pubic ramus with approximately 5 mm lateral distraction of fracture fragments. There is 7 mm anterior displacement of fracture fragments. LEFT HIP JOINT: The hip joint space is preserved. No dislocation. No degenerative changes. SOFT TISSUES: There is subcutaneous edema in the gluteal soft tissues. IMPRESSION: Acute comminuted mildly displaced fracture in the lateral aspect of the left inferior pubic ramus as described above. No evidence of acute fracture in the femur. No dislocation.
--- NOTE | 2018-07-22 15:50 | CP.PCM.PN ---
Subjective - Date & Time of Evaluation Date of Evaluation: 07/22/18 Time of Evaluation: 09:30 - Subjective Subjective: clinically same Objective - Vital Signs/Intake and Output Vital Signs (last 24 hours): Temp Pulse Resp BP Pulse Ox 98.4 F 90 18 114/61 93 L 07/22/18 07:00 07/22/18 07:45 07/22/18 07:00 07/22/18 09:53 07/22/18 07:00 Intake and Output: 07/22/18 07/22/18 06:59 18:59 Intake Total 320 250 Output Total 350 200 Balance -30 50 - Medications Medications: Current Medications Albuterol/Ipratropium (Duoneb 3 Mg/0.5 Mg (3 Ml) Ud) 3 ml INH RQ6 [facility] Last Admin: 07/22/18 13:40 Dose: Not Given Amlodipine Besylate (Norvasc) 5 mg PO DAILY [facility] Last Admin: 07/22/18 09:54 Dose: 5 mg Furosemide (Lasix) 40 mg IVP DAILY [facility] Last Admin: 07/22/18 09:53 Dose: 40 mg Heparin Sodium (Porcine) (Heparin) 5,000 units SC Q12 [facility] Last Admin: 07/22/18 09:54 Dose: 5,000 units Vancomycin/Sodium Chloride (Vancomycin 1 Gm/Ns 200 Ml) 1 gm in 200 mls @ 133.333 mls/hr IVPB Q24H [facility] PRN Reason: Protocol Stop: 07/25/18 23:01 Last Admin: 07/21/18 22:14 Dose: 133.333 mls/hr Lactulose (Enulose) 20 gm PO DAILY [facility] Last Admin: 07/22/18 09:55 Dose: Not Given Lorazepam (Ativan) 0.5 mg PO Q12 PRN PRN Reason: Anxiety Last Admin: 07/22/18 10:14 Dose: 0.5 mg Metformin HCl (Glucophage) 500 mg PO BID [facility] Last Admin: 07/22/18 09:54 Dose: 500 mg Mupirocin (Bactroban Ointment) 1 gm TOP BID [facility] Last Admin: 07/22/18 09:54 Dose: 1 applic Pantoprazole Sodium (Protonix Ec Tab) 40 mg PO DAILY [facility] Last Admin: 07/22/18 09:54 Dose: 40 mg Sertraline HCl (Zoloft) 50 mg PO BID [facility] Last Admin: 07/22/18 09:54 Dose: 50 mg - Labs Labs: 07/22/18 06:46 07/22/18 06:46 PT 16.7 SECONDS (9.7-12.2) H 07/20/18 18:46 INR 1.5 07/20/18 18:46 APTT 26 SECONDS (21-34) 07/20/18 18:46 - Constitutional Appears: Well - Head Exam Head Exam: ATRAUMATIC, NORMAL INSPECTION, NORMOCEPHALIC - Eye Exam Eye Exam: EOMI, Normal appearance, PERRL Pupil Exam: NORMAL ACCOMODATION, PERRL - ENT Exam ENT Exam: Mucous Membranes Moist, Normal Exam - Neck Exam Neck Exam: Full ROM, Normal Inspection. absent: Lymphadenopathy - Respiratory Exam Respiratory Exam: Decreased Breath Sounds - Cardiovascular Exam Cardiovascular Exam: REGULAR RHYTHM, +S1, +S2 - GI/Abdominal Exam GI & Abdominal Exam: Soft, Diminished Bowel Sounds - Rectal Exam Rectal Exam: Deferred
[2018-07-22] MEDS: Vancomycin 1 gm/NS 200 ml 1 GM/200 ML BAG IVPB SCH (22:25)
[2018-07-23] MEDS: Albuterol-Ipratrop 3 mg / 0.5 (3 ml) UD INH SCH ×4 (01:27→20:45)
[2018-07-23 09:04] LABS: BASO % 0.6 % (0.0-2.0); EOS # 0.2 K/uL (0.0-0.7); HEMOGLOBIN 12.9 g/dL (11.0-16.0); LYMPH # 1.5 K/uL (1.0-4.3); LYMPH % 36.6 % (20.0-40.0); MEAN CELL VOLUME 105.2 fL (81.0-99.0); MEAN CORPUSCULAR HGB CONC 35.2 g/dL (33.0-37.0); MEAN PLATELET VOLUME 6.9 fL (7.2-11.7); MONO # 0.4 K/uL (0.0-0.8); MONO % 8.8 % (0.0-10.0); NRBC % 0.1 % (0.0-2.0); RBC 3.48 Mil/uL (3.80-5.20); RED CELL DISTRIBUTION WIDTH 14.8 % (11.5-14.5)
[2018-07-23 09:13] LABS: ALB/GLOB RATIO 0.8 (1.0-2.1); ALBUMIN 2.7 g/dL (3.5-5.0); ALT/SGPT 30 U/L (9-52); AST/SGOT 62 U/L (14-36); BLOOD UREA NITROGEN 21 mg/dL (7-17); CALCIUM 8.3 mg/dl (8.6-10.4); GFR NON-AFRICAN AMERICAN > 60
[2018-07-23] MEDS: Pantoprazole 40 mg EC Tab PO SCH (09:54)
--- NOTE | 2018-07-23 13:40 | CP.PCM.PN ---
Subjective - Date & Time of Evaluation Date of Evaluation: 07/23/18 Time of Evaluation: 09:15 - Subjective Subjective: clinically same Objective - Vital Signs/Intake and Output Vital Signs (last 24 hours): Temp Pulse Resp BP Pulse Ox 98.3 F 86 20 112/61 93 L 07/23/18 07:00 07/23/18 08:00 07/23/18 07:00 07/23/18 12:06 07/23/18 12:06 Intake and Output: 07/23/18 07/23/18 06:59 18:59 Intake Total 300 Output Total 575 Balance -275 - Medications Medications: Current Medications Albuterol/Ipratropium (Duoneb 3 Mg/0.5 Mg (3 Ml) Ud) 3 ml INH RQ6 [facility] Last Admin: 07/23/18 07:49 Dose: Not Given Amlodipine Besylate (Norvasc) 5 mg PO DAILY [facility] Last Admin: 07/23/18 09:54 Dose: 5 mg Furosemide (Lasix) 40 mg IVP DAILY [facility] Last Admin: 07/23/18 09:54 Dose: 40 mg Heparin Sodium (Porcine) (Heparin) 5,000 units SC Q12 [facility] Last Admin: 07/23/18 09:54 Dose: 5,000 units Vancomycin/Sodium Chloride (Vancomycin 1 Gm/Ns 200 Ml) 1 gm in 200 mls @ 133.333 mls/hr IVPB Q24H [facility] PRN Reason: Protocol Stop: 07/25/18 23:01 Last Admin: 07/22/18 22:25 Dose: 133.333 mls/hr Lactulose (Enulose) 20 gm PO DAILY [facility] Last Admin: 07/23/18 09:56 Dose: Not Given Lorazepam (Ativan) 0.5 mg PO Q12 PRN PRN Reason: Anxiety Last Admin: 07/23/18 09:53 Dose: 0.5 mg Metformin HCl (Glucophage) 500 mg PO BID [facility] Last Admin: 07/23/18 09:56 Dose: Not Given Mupirocin (Bactroban Ointment) 1 gm TOP BID [facility] Last Admin: 07/23/18 09:54 Dose: 1 applic Pantoprazole Sodium (Protonix Ec Tab) 40 mg PO DAILY [facility] Last Admin: 07/23/18 09:54 Dose: 40 mg Sertraline HCl (Zoloft) 50 mg PO BID [facility] Last Admin: 08/26/18 09:54 Dose: 50 mg - Labs Labs: 07/23/18 08:49 07/23/18 08:49 PT 16.7 SECONDS (9.7-12.2) H 07/20/18 18:46 INR 1.5 07/20/18 18:46 APTT 26 SECONDS (21-34) 07/20/18 18:46 - Constitutional Appears: Well - Head Exam Head Exam: ATRAUMATIC, NORMAL INSPECTION, NORMOCEPHALIC - Eye Exam Eye Exam: EOMI, Normal appearance, PERRL Pupil Exam: NORMAL ACCOMODATION, PERRL - ENT Exam ENT Exam: Mucous Membranes Moist, Normal Exam - Neck Exam Neck Exam: Full ROM, Normal Inspection. absent: Lymphadenopathy - Respiratory Exam Respiratory Exam: Decreased Breath Sounds - Cardiovascular Exam Cardiovascular Exam: REGULAR RHYTHM, +S1, +S2 - GI/Abdominal Exam GI & Abdominal Exam: Soft, Diminished Bowel Sounds - Rectal Exam Rectal Exam: Deferred
[2018-07-23] MEDS: Vancomycin 1 gm/NS 200 ml 1 GM/200 ML BAG IVPB SCH (22:32)
[2018-07-24] MEDS: Albuterol-Ipratrop 3 mg / 0.5 (3 ml) UD INH SCH ×3 (01:39→19:40)
[2018-07-24 07:20] LABS: BASO % 0.4 % (0.0-2.0); EOS # 0.2 K/uL (0.0-0.7); EOS % 5.4 % (0.0-4.0); HEMOGLOBIN 12.4 g/dL (11.0-16.0); LYMPH # 1.6 K/uL (1.0-4.3); LYMPH % 35.6 % (20.0-40.0); MEAN CELL VOLUME 106.3 fL (81.0-99.0); MEAN CORPUSCULAR HEMOGLOBIN 37.1 pg (27.0-31.0); MEAN CORPUSCULAR HGB CONC 34.9 g/dL (33.0-37.0); MEAN PLATELET VOLUME 6.9 fL (7.2-11.7); MONO # 0.5 K/uL (0.0-0.8); MONO % 11.7 % (0.0-10.0); NEUT # 2.1 K/uL (1.8-7.0); NEUT % 46.9 % (50.0-75.0); NRBC % 0.2 % (0.0-2.0); RBC 3.34 Mil/uL (3.80-5.20); RED CELL DISTRIBUTION WIDTH 14.9 % (11.5-14.5); WHITE BLOOD COUNT 4.6 K/uL (4.8-10.8)
--- NOTE | 2018-07-24 08:20 | CP.PCM.PN ---
Subjective - Date & Time of Evaluation Date of Evaluation: 07/24/18 Time of Evaluation: 08:00 - Subjective Subjective: PGY-2 Med Note- Dr. Rachelle Green's service Patient was seen and examined at bedside in the AM. Patient complains of back and leg pain. Patient denies chest pain, shortness of breath, numbness, tingling, nausea or vomiting. Objective - Vital Signs/Intake and Output Vital Signs (last 24 hours): Temp Pulse Resp BP Pulse Ox 97.6 F 73 18 114/70 98 07/24/18 07:00 07/24/18 07:00 07/24/18 07:00 07/24/18 07:00 07/24/18 07:00 Intake and Output: 07/24/18 07/24/18 06:59 18:59 Intake Total 100 Output Total 400 Balance -300 - Medications Medications: Current Medications Albuterol/Ipratropium (Duoneb 3 Mg/0.5 Mg (3 Ml) Ud) 3 ml INH RQ6 [facility] Last Admin: 07/24/18 07:49 Dose: Not Given Amlodipine Besylate (Norvasc) 5 mg PO DAILY [facility] Last Admin: 07/23/18 09:54 Dose: 5 mg Furosemide (Lasix) 40 mg IVP DAILY [facility] Last Admin: 07/23/18 09:54 Dose: 40 mg Heparin Sodium (Porcine) (Heparin) 5,000 units SC Q12 [facility] Last Admin: 07/23/18 21:30 Dose: 5,000 units Vancomycin/Sodium Chloride (Vancomycin 1 Gm/Ns 200 Ml) 1 gm in 200 mls @ 133.333 mls/hr IVPB Q24H [facility] PRN Reason: Protocol Stop: 07/25/18 23:01 Last Admin: 07/23/18 22:32 Dose: 133.333 mls/hr Lactulose (Enulose) 20 gm PO DAILY [facility] Last Admin: 07/23/18 09:56 Dose: Not Given Lorazepam (Ativan) 0.5 mg PO Q12 PRN PRN Reason: Anxiety Last Admin: 07/23/18 09:53 Dose: 0.5 mg Mupirocin (Bactroban Ointment) 1 gm TOP BID [facility] Last Admin: 07/23/18 18:03 Dose: 1 applic Pantoprazole Sodium (Protonix Ec Tab) 40 mg PO DAILY [facility] Last Admin: 07/23/18 09:54 Dose: 40 mg Sertraline HCl (Zoloft) 50 mg PO BID [facility] Last Admin: 07/23/18 17:24 Dose: 50 mg - Labs Labs: 07/24/18 07:09 07/23/18 08:49 PT 16.7 SECONDS (9.7-12.2) H 07/20/18 18:46 INR 1.5 07/20/18 18:46 APTT 26 SECONDS (21-34) 07/20/18 18:46 - Constitutional Appears: No Acute Distress - Head Exam Head Exam: ATRAUMATIC, NORMAL INSPECTION - Eye Exam Eye Exam: EOMI, Normal appearance - ENT Exam ENT Exam: Mucous Membranes Moist - Respiratory Exam Respiratory Exam: Clear to Ausculation Bilateral, NORMAL BREATHING PATTERN - Cardiovascular Exam Cardiovascular Exam: +S1, +S2 - GI/Abdominal Exam GI & Abdominal Exam: Soft, Normal Bowel Sounds. absent: Tenderness - Extremities Exam Additional comments: lymphedema noted in upper extremities and lower extremities bilaterally - Neurological Exam Neurological Exam: Alert, Awake, Oriented x3 - Psychiatric Exam Psychiatric exam: Normal Affect - Skin Skin Exam: Normal Color Assessment and Plan - Assessment and Plan (Free Text) Assessment: s/p Fall causing a fracture of the inferior pubic ramus Rule out cardiac etiology. F/U echo. F/U Cardio recommendations Ortho Sonsult: Dr. King --> help appreciated - Imaging: * Head CT: Mild to moderate chronic white matter ischemic changes as above. Note that the possibility of a small hyperacute infarct not excluded.Mild generalized volume loss * Hip/Pelvis Xray: Left inferior pubic ring cortical irregularity and lucency probably relating to trauma/osseous avulsion- the chronicity of this is unknown. Consider noncontrast CT of the hip including the left hemipelvis for clarification if indicated. * Lumbar Spine Xray: No lumbar level suspect compression fracture. Degenerative extensive thoraco lumbar spondylosis noted. An scoliosis. Degenerative disc disease changes and exuberant facet hypertrophic arthrosis. The portions of the inferior thoracic spine which are not visually included on this exam have some mild decreased suggested vertebral body heights the chronicity of this appearance is unknown -in this patient's spine degenerative wedging is a consideration. * Hip CT: Acute comminuted mildly displaced fracture in the lateral aspect of the left inferior pubic ramus as described above. No evidence of acute fracture in the femur. No dislocation. - F/U with PT and OT - F/U with case management about home living situation Cellulitis - On Vanc (started 07/20/18)-Patient allergic to PCN at this time. - Vanc trough: 17.5 - Mupirocin 1gm top bid - F/U additional ID recommendations Lymphedema - Venous dopplers: negative - Physical Therapy- F/U - Elevate extremities - Compression stockings - Lymphatic drainage management mechanisms - F/U ID recommendations in light of concurrent cellulitis Nodular Opacity - Asymptomatic - Chest xray: 78 mm faint nodular opacity projecting just above the elevated left hemidiaphragm of indeterminate significance, if any). Not appreciated such on prior studies. Consider noncontrast CT chest for further clarification. - f/u Chest CT Hypertension - Norvasc 5 mg PO daily - Lasix 40mg IV daily - Monitor Depression - Zoloft 50mg po bid Prophylaxis - Heparin SC Q12 - PPI 40 mg PO daily - PT and OT All management and planning per Dr. Rachelle Green.
--- NOTE | 2018-07-24 08:39 | PQF ---
PROVIDER RESPONSE TEXT: Acute on chronic Diastolic CHF REVIEWER QUERY TEXT: CHF Acuity and Type Congestive Heart Failure is documented in the Medical Record. Please document the type and acuity (in cludes probable or suspected) Such as: Type: -- Systolic -- Diastolic -- Combined -- Other, please specify Acuity: -- Acute -- Chronic -- Acute on chronic -- Other, please specify Also please document the underlying cause of the CHF (includes probable or suspected) The patient's Clinical Indicators include: Pt. is 82 Y.O. female c/o not being able to walk x 5 days, fell from chair and landed on buttocks. No n -compliant with Lasix. Admitted with Impression. Leg Edema, CHF, Gait Apraxia of Elderly. Echo 05/01/15:LVEF 71%, Diastolic Dysfunction CXR: Mild CHF Tx: Lasix 40 mg IV OD, Norvasc 5 mg PO OD, Vanco 1 Gm IV Q 24 H. Query created by: Iveth Dutton on 07/21/2018 4:09 PM Electronically signed by: James WEISS 07/24/2018 8:36 AM
[2018-07-24 09:03] LABS: ALB/GLOB RATIO 0.7 (1.0-2.1); ALBUMIN 2.5 g/dL (3.5-5.0); ALT/SGPT 28 U/L (9-52); AST/SGOT 69 U/L (14-36); BLOOD UREA NITROGEN 23 mg/dL (7-17); CALCIUM 8.2 mg/dl (8.6-10.4); GFR NON-AFRICAN AMERICAN > 60
[2018-07-24] MEDS: Pantoprazole 40 mg EC Tab PO SCH (09:50)
--- NOTE | 2018-07-24 12:45 | VASCLAB ---
Date of service: 07/24/2018 PROCEDURE: Lower Extremity Venous Duplex Exam. HISTORY: Leg swelling PRIORS: 04/30/2015, normal. TECHNIQUE: Bilateral common femoral, femoral, popliteal and posterior tibial, peroneal and great saphenous veins were evaluated. Flow was assessed with color Doppler, compressibility, assessment of phasic flow and augmentation response. Report prepared by OPAL Patel FINDINGS: RIGHT: 1. Common Femoral Vein: 1.1. Compressibility - Fully compressible: Thrombus - None : Flow - Phasic: Augmentation -Normal: Reflux - None. 2. Femoral Vein: 2.1. Compressibility - Fully compressible: Thrombus - None : Flow - Phasic: Augmentation -Normal: Reflux - None. 3. Popliteal Vein: 3.1. Compressibility - Fully compressible: Thrombus - None : Flow - Phasic: Augmentation -Normal: Reflux - None. 4. Posterior Tibial Vein: 4.1. Compressibility - Fully compressible: Thrombus - None: Flow - Phasic: Augmentation -Normal: Reflux - None. 5. Peroneal Vein: 5.1. Compressibility - Fully compressible: Thrombus - None: Flow - Phasic: Augmentation -Normal: Reflux - None. 6. Great Saphenous Vein: 6.1. Compressibility - Fully compressible: Thrombus - None: Flow - Phasic: Augmentation - Normal: Reflux - None. LEFT: 1. Common Femoral Vein: 1.1. Compressibility - Fully compressible: Thrombus - None: Flow - Phasic: Augmentation -Normal: Reflux - None. 2. Femoral Vein: 2.1. Compressibility - Fully compressible: Thrombus - None: Flow - Phasic: Augmentation -Normal: Reflux - None. 3. Popliteal Vein: 3.1. Compressibility - Fully compressible: Thrombus - None : Flow - Phasic: Augmentation -Normal: Reflux - None. 4. Posterior Tibial Vein: 4.1. Compressibility - Fully compressible: Thrombus - None: Flow - Phasic: Augmentation -Normal: Reflux - None. 5. Peroneal Vein: 5.1. DIMINUTIVE CALIBER 6. Great Saphenous Vein: 6.1. NOT VISUALIZED. OTHER FINDINGS: Right: Patent distal posterior tibial and anterior tibial arteries, with normal velocities and triphasic waveforms. Left: Patent distal posterior tibial and anterior tibial arteries, with normal velocities and triphasic waveforms. IMPRESSION: Right: No evidence of deep or superficial vein thrombosis of the right lower extremity. Normal valve function noted of the right side. Left: No evidence of deep or superficial vein thrombosis of the left lower extremity. Normal valve function noted of the left side.
--- NOTE | 2018-07-24 14:25 | CP.PCM.CON ---
History of Present Illness - History of Present Illness History of Present Illness: Orthopedic consultation Dr. King 82F complains of left knee/leg and back pain after slip and fall onto buttocks. She says she has walker and wheelchair and she walks a little, but not since fall. Currently she is complaining about back and left knee pain. Denies numbness/tingling/bowel or bladder changes. Denies pain in upper extremities. Denies surgery to legs, denies prior fractures or pain when she sits. Dopplers neg BLE for DVT Review of Systems - Review of Systems All systems: reviewed and no additional remarkable complaints except - Constitutional Additional comments: no fever/chills - Cardiovascular Additional comments: denies CP - Respiratory Additional comments: no SOB - Musculoskeletal Musculoskeletal: As Per HPI - Integumentary Integumentary: Swelling - Neurological Neurological: As Per HPI - Hematologic/Lymphatic Hematologic: absent: As Per HPI, Easy Bleeding, Easy Bruising, Lymphadenopathy, Other Past Patient History - Past Medical History & Family History Past Medical History?: Yes Past Family History: Reviewed and not pertinent - Past Social History Smoking Status: Never Smoked - CARDIAC Hx Cardiac Disorders: Yes Hx Hypertension: Yes - PULMONARY Hx Respiratory Disorders: Yes Hx Asthma: Yes - NEUROLOGICAL Hx Neurological Disorder: No - HEENT Hx HEENT Problems: No - RENAL Hx Chronic Kidney Disease: No - ENDOCRINE/METABOLIC Hx Hypothyroidism: Yes - HEMATOLOGICAL/ONCOLOGICAL Hx Blood Disorders: No - INTEGUMENTARY Hx Dermatological Problems: No - MUSCULOSKELETAL/RHEUMATOLOGICAL Hx Arthritis: Yes (BACK , KNEE + SCOLIOSIS) - GASTROINTESTINAL Hx Gastrointestinal Disorders: No - GENITOURINARY/GYNECOLOGICAL Hx Genitourinary Disorders: No - PSYCHIATRIC Hx Psychophysiologic Disorder: Yes Hx Anxiety: Yes Hx Substance Use: No - SURGICAL HISTORY Hx Surgeries: Yes Hx Cholecystectomy: Yes - ANESTHESIA Hx Anesthesia: Yes Hx Anesthesia Reactions: No Hx Malignant Hyperthermia: No Has any member of the family had a problem w/ anesthesia?: No Meds Allergies/Adverse Reactions: Allergies Allergy/AdvReac Type Severity Reaction Status Date / Time aspirin Allergy Verified 07/20/18 16:03 codeine Allergy Verified 07/20/18 16:03 cortisone Allergy Verified 07/20/18 16:03 lidocaine Allergy Verified 07/20/18 16:03 Penicillins Allergy Verified 07/20/18 16:03 - Medications Medications: Current Medications Albuterol/Ipratropium (Duoneb 3 Mg/0.5 Mg (3 Ml) Ud) 3 ml INH RQ6 [facility] Last Admin: 07/24/18 07:49 Dose: Not Given Amlodipine Besylate (Norvasc) 5 mg PO DAILY [facility] Last Admin: 07/24/18 09:50 Dose: 5 mg Furosemide (Lasix) 40 mg IVP DAILY [facility] Last Admin: 07/24/18 09:49 Dose: 40 mg Heparin Sodium (Porcine) (Heparin) 5,000 units SC Q12 [facility] Last Admin: 07/24/18 09:50 Dose: 5,000 units Vancomycin/Sodium Chloride (Vancomycin 1 Gm/Ns 200 Ml) 1 gm in 200 mls @ 133.333 mls/hr IVPB Q24H [facility] PRN Reason: Protocol Stop: 07/25/18 23:01 Last Admin: 07/23/18 22:32 Dose: 133.333 mls/hr Lactulose (Enulose) 20 gm PO DAILY [facility] Last Admin: 07/24/18 10:00 Dose: Not Given Lorazepam (Ativan) 0.5 mg PO Q12 PRN PRN Reason: Anxiety Last Admin: 07/24/18 09:55 Dose: 0.5 mg Mupirocin (Bactroban Ointment) 1 gm TOP BID [facility] Last Admin: 07/24/18 09:50 Dose: 1 applic Pantoprazole Sodium (Protonix Ec Tab) 40 mg PO DAILY [facility] Last Admin: 07/24/18 09:50 Dose: 40 mg Sertraline HCl (Zoloft) 50 mg PO BID [facility] Last Admin: 07/24/18 09:50 Dose: 50 mg Physical Exam - Constitutional Appears: Well, No Acute Distress - Head Exam Head Exam: ATRAUMATIC - Neck Exam Neck exam: Positive for: Full Rom, Normal Inspection - Respiratory Exam Respiratory Exam: NORMAL BREATHING PATTERN - Cardiovascular Exam Additional comments: +DP/PT pulses - Expanded Lower Extremities Exam Left Hip exam: full ROM (no pain with full AROM left hip, no pain with log roll/ traction, PROM), tenderness (to ischial tub) Knee exam: full ROM, swelling (mild laxity to valgus stress, no crepitus, mild effusion, not warm, generalized mild tendernes to knee, no pain wtih AROM), tenderness Ankle exam: FULL ROM Neuro vacular tendon exam: no vascular compromise (sensation intact) - Back Exam Additional comments: TTP sacrum - Neurological Exam Neurological exam: Alert, Oriented x3 - Psychiatric Exam Psychiatric exam: Normal Affect, Normal Mood - Skin Skin Exam: Dry, Intact (noted significant wrinkling to B feet and lower legs ( min swelling at this time)), Normal Color, Warm Results - Vital Signs Recent Vital Signs: Last Vital Signs Temp 97.6 F 07/24/18 07:00 Pulse 89 07/24/18 12:39 Resp 18 07/24/18 07:00 BP 120/80 07/24/18 09:49 Pulse Ox 98 07/24/18 07:00 - Labs Result Diagrams: 07/24/18 07:09 07/24/18 07:09 Labs: Laboratory Results - last 24 hr 07/23/18 07/23/18 07/24/18 16:25 21:16 07:09 WBC 4.6 L RBC 3.34 L Hgb 12.4 Hct 35.5 MCV 106.3 H MCH 37.1 H MCHC 34.9 RDW 14.9 H Plt Count 170 MPV 6.9 L Neut % (Auto) 46.9 L Lymph % (Auto) 35.6 [place] % (Auto) 11.7 H Eos % (Auto) 5.4 H Baso % (Auto) 0.4 Neut # (Auto) 2.1 Lymph # (Auto) 1.6 [place] # (Auto) 0.5 Eos # (Auto) 0.2 Baso # (Auto) 0.0 Sodium Potassium Chloride Carbon Dioxide Anion Gap BUN Creatinine Est GFR ( Amer) Est GFR (Non-Af Amer) POC Glucose (mg/dL) 116 H 92 Random Glucose Calcium Phosphorus Magnesium Total Bilirubin AST ALT Alkaline Phosphatase Total Protein Albumin Globulin Albumin/Globulin Ratio 07/24/18 07:09 WBC RBC Hgb Hct MCV MCH MCHC RDW Plt Count MPV Neut % (Auto) Lymph % (Auto) [place] % (Auto) Eos % (Auto) Baso % (Auto) Neut # (Auto) Lymph # (Auto) [place] # (Auto) Eos # (Auto) Baso # (Auto) Sodium 141 Potassium 3.9 Chloride 105 Carbon Dioxide 29 Anion Gap 11 BUN 23 H Creatinine 0.7 Est GFR ( Amer) > 60 Est GFR (Non-Af Amer) > 60 POC Glucose (mg/dL) Random Glucose 91 Calcium 8.2 L Phosphorus 3.4 Magnesium 1.7 Total Bilirubin 2.3 H AST 69 H ALT 28 Alkaline Phosphatase 125 Total Protein 5.8 L Albumin 2.5 L Globulin 3.3 Albumin/Globulin Ratio 0.7 L - Impressions Impression: Patient Name / ID : BRENTON Powell [id number] Exam Date : 07/22/2018 13:56:54 ( Approved ) Study Comment : Sex / Age : F / 82Y Creator : Yaneth Hand MD Dictator : Yaneth Hand MD Sheet Hanger : Addictions Therapist : Yaneth Hand MD Approver2 : Report Date : 07/22/2018 14:23:31 My Comment : Date of service: 07/22/2018 PROCEDURE: CT of the Left Hip. HISTORY: hip pain , r/o fracture COMPARISON: Plain radiographs 07/20/2018. TECHNIQUE: Contiguous axial images of the left hip were obtained. Coronal and sagittal reformats were generated. This CT exam was performed using one or more of the following dose reduction techniques: Automated exposure control, adjustment of the mA and/or kV according to patient size, and/or use of iterative reconstruction technique. FINDINGS: BONES: There is diffuse bone demineralization. There is an acute comminuted mildly displaced fracture in the lateral aspect of the left inferior pubic ramus with approximately 5 mm lateral distraction of fracture fragments. There is 7 mm anterior displacement of fracture fragments. LEFT HIP JOINT: The hip joint space is preserved. No dislocation. No degenerative changes. SOFT TISSUES: There is subcutaneous edema in the gluteal soft tissues. IMPRESSION: Acute comminuted mildly displaced fracture in the lateral aspect of the left inferior pubic ramus as described above. No evidence of acute fracture in the femur. No dislocation. Patient Name / ID : BRENTON CASTRO / [id number] Exam Date : 07/20/2018 16:34:52 ( Approved ) Study Comment : Sex / Age : F / 82Y Creator : Socorro Rose V. Dictator : Socorro Rose V. Sheet Hanger : Addictions Therapist : Socorro Rose V. Approver2 : Report Date : 07/20/2018 17:03:53 My Comment : Date of service: 07/20/2018 PROCEDURE: Radiographs of the Lumbar Spine. HISTORY: fall 5 days ago, cant walk, ? comp fx COMPARISON: No prior. FINDINGS: BONES: Rightward thoracolumbar convexity. Exuberant anterior and marginal osteophytosis inferior thoracic level and lumbar levels. Probable lumbar level prominent Schmorl's node indentations. Some decreased height of the inferior thoracic spine is also noted - its chronicity also was unknown may be in large part degenerative wedging. Correlation is needed in terms of patient's site of pain. No more inferior lumbar level compression fractures suggested. DISC SPACES: Diffuse disc space narrowing at all lumbar levels OTHER FINDINGS: Facet hypertrophic arthrosis most notable from L3-4 through including L5-S1. IMPRESSION: No lumbar level suspect compression fracture. Degenerative extensive thoraco lumbar spondylosis noted. An scoliosis. Degenerative disc disease changes and exuberant facet hypertrophic arthrosis. The portions of the inferior thoracic spine which are not visually included on this exam have some mild decreased suggested vertebral body heights the chronicity of this appearance is unknown -in this patient's spine degenerative wedging is a consideration. Clinical correlation is needed in terms of patient' s level of pain (thoracic or lumbar) Assessment & Plan (1) Fracture of left inferior pubic ramus Assessment and Plan: clinically appears acute r/o sacral fx non operative PT/OT, will update WB after CT pelvis and knee xrays VTE proph d/w Dr. King, agrees with above Status: Acute (2) Back pain Assessment and Plan: r/o sacral fx, CT pelvis ordered Status: Acute (3) Left knee pain Assessment and Plan: patient with known knee arthritis, but increased pain today per pt no obvious fracture, no erythema xrays pending Status: Acute
--- NOTE | 2018-07-24 19:53 | CP.PCM.PN ---
Subjective - Date & Time of Evaluation Date of Evaluation: 07/24/18 Time of Evaluation: 09:00 - Subjective Subjective: clinically same Objective - Vital Signs/Intake and Output Vital Signs (last 24 hours): Temp Pulse Resp BP Pulse Ox 97.5 F L 81 18 108/58 L 97 07/24/18 16:00 07/24/18 16:00 07/24/18 16:00 07/24/18 16:00 07/24/18 16:00 Intake and Output: 07/24/18 07/25/18 18:59 06:59 Intake Total 300 Output Total 625 Balance -325 - Medications Medications: Current Medications Albuterol/Ipratropium (Duoneb 3 Mg/0.5 Mg (3 Ml) Ud) 3 ml INH RQ6 [facility] Last Admin: 07/24/18 19:40 Dose: 3 ml Amlodipine Besylate (Norvasc) 5 mg PO DAILY [facility] Last Admin: 07/24/18 09:50 Dose: 5 mg Furosemide (Lasix) 40 mg IVP DAILY [facility] Last Admin: 07/24/18 09:49 Dose: 40 mg Heparin Sodium (Porcine) (Heparin) 5,000 units SC Q12 [facility] Last Admin: 07/24/18 09:50 Dose: 5,000 units Vancomycin/Sodium Chloride (Vancomycin 1 Gm/Ns 200 Ml) 1 gm in 200 mls @ 133.333 mls/hr IVPB Q24H [facility] PRN Reason: Protocol Stop: 07/25/18 23:01 Last Admin: 07/23/18 22:32 Dose: 133.333 mls/hr Lactulose (Enulose) 20 gm PO DAILY [facility] Last Admin: 07/24/18 10:00 Dose: Not Given Lorazepam (Ativan) 0.5 mg PO Q12 PRN PRN Reason: Anxiety Last Admin: 07/24/18 09:55 Dose: 0.5 mg Mupirocin (Bactroban Ointment) 1 gm TOP BID [facility] Last Admin: 07/24/18 18:17 Dose: 1 applic Pantoprazole Sodium (Protonix Ec Tab) 40 mg PO DAILY [facility] Last Admin: 07/24/18 09:50 Dose: 40 mg Sertraline HCl (Zoloft) 50 mg PO BID [facility] Last Admin: 07/24/18 18:17 Dose: 50 mg - Labs Labs: 07/24/18 07:09 07/24/18 07:09 PT 16.7 SECONDS (9.7-12.2) H 07/20/18 18:46 INR 1.5 07/20/18 18:46 APTT 26 SECONDS (21-34) 07/20/18 18:46 - Constitutional Appears: Well - Head Exam Head Exam: ATRAUMATIC, NORMAL INSPECTION, NORMOCEPHALIC - Eye Exam Eye Exam: EOMI, Normal appearance, PERRL Pupil Exam: NORMAL ACCOMODATION, PERRL - ENT Exam ENT Exam: Mucous Membranes Moist, Normal Exam - Neck Exam Neck Exam: Full ROM, Normal Inspection. absent: Lymphadenopathy - Respiratory Exam Respiratory Exam: Decreased Breath Sounds - Cardiovascular Exam Cardiovascular Exam: REGULAR RHYTHM, +S1, +S2 - GI/Abdominal Exam GI & Abdominal Exam: Soft, Diminished Bowel Sounds - Rectal Exam Rectal Exam: Deferred
[2018-07-25] MEDS: Vancomycin 1 gm/NS 200 ml 1 GM/200 ML BAG IVPB SCH (00:54)
[2018-07-25] MEDS: Albuterol-Ipratrop 3 mg / 0.5 (3 ml) UD INH SCH ×4 (02:50→19:30)
[2018-07-25 07:25] LABS: BASO % 0.4 % (0.0-2.0); EOS # 0.1 K/uL (0.0-0.7); EOS % 3.5 % (0.0-4.0); HEMOGLOBIN 11.9 g/dL (11.0-16.0); LYMPH # 1.1 K/uL (1.0-4.3); LYMPH % 26.1 % (20.0-40.0); MEAN CELL VOLUME 105.8 fL (81.0-99.0); MEAN CORPUSCULAR HEMOGLOBIN 36.5 pg (27.0-31.0); MEAN CORPUSCULAR HGB CONC 34.5 g/dL (33.0-37.0); MEAN PLATELET VOLUME 7.1 fL (7.2-11.7); MONO # 0.5 K/uL (0.0-0.8); MONO % 11.1 % (0.0-10.0); NEUT # 2.4 K/uL (1.8-7.0); NEUT % 58.9 % (50.0-75.0); NRBC % 0.3 % (0.0-2.0); RBC 3.26 Mil/uL (3.80-5.20); RED CELL DISTRIBUTION WIDTH 14.7 % (11.5-14.5); WHITE BLOOD COUNT 4.1 K/uL (4.8-10.8)
[2018-07-25 07:42] LABS: BLOOD UREA NITROGEN 25 mg/dL (7-17); GFR NON-AFRICAN AMERICAN > 60
[2018-07-25 07:43] LABS: ALB/GLOB RATIO 0.8 (1.0-2.1); ALBUMIN 2.3 g/dL (3.5-5.0); ALT/SGPT 28 U/L (9-52); AST/SGOT 50 U/L (14-36); CALCIUM 7.9 mg/dl (8.6-10.4)
--- NOTE | 2018-07-25 07:49 | CP.PCM.PN ---
Subjective - Date & Time of Evaluation Date of Evaluation: 07/25/18 Time of Evaluation: 07:00 - Subjective Subjective: PGY-2 Med Note- Dr. Rachelle Green's service Patient was seen and examined at bedside in the AM. Patient complains of back pain. Patient denies chest pain, shortness of breath, numbness, tingling, nausea or vomiting. Objective - Vital Signs/Intake and Output Vital Signs (last 24 hours): Temp Pulse Resp BP Pulse Ox 98.8 F 85 20 101/54 L 96 07/24/18 23:20 07/25/18 01:00 07/24/18 23:20 07/24/18 23:20 07/24/18 23:20 Intake and Output: 07/25/18 07/25/18 06:59 18:59 Output Total 200 Balance -200 - Medications Medications: Current Medications Albuterol/Ipratropium (Duoneb 3 Mg/0.5 Mg (3 Ml) Ud) 3 ml INH RQ6 [facility] Last Admin: 07/25/18 02:50 Dose: Not Given Amlodipine Besylate (Norvasc) 5 mg PO DAILY [facility] Last Admin: 07/24/18 09:50 Dose: 5 mg Furosemide (Lasix) 40 mg IVP DAILY [facility] Last Admin: 07/24/18 09:49 Dose: 40 mg Heparin Sodium (Porcine) (Heparin) 5,000 units SC Q12 [facility] Last Admin: 07/24/18 21:57 Dose: 5,000 units Vancomycin/Sodium Chloride (Vancomycin 1 Gm/Ns 200 Ml) 1 gm in 200 mls @ 133.333 mls/hr IVPB Q24H [facility] PRN Reason: Protocol Stop: 07/25/18 23:01 Last Admin: 07/25/18 00:54 Dose: 133.333 mls/hr Lactulose (Enulose) 20 gm PO DAILY [facility] Last Admin: 07/24/18 10:00 Dose: Not Given Lorazepam (Ativan) 0.5 mg PO Q12 PRN PRN Reason: Anxiety Last Admin: 07/24/18 09:55 Dose: 0.5 mg Mupirocin (Bactroban Ointment) 1 gm TOP BID [facility] Last Admin: 07/24/18 18:17 Dose: 1 applic Pantoprazole Sodium (Protonix Ec Tab) 40 mg PO DAILY [facility] Last Admin: 07/24/18 09:50 Dose: 40 mg Sertraline HCl (Zoloft) 50 mg PO BID [facility] Last Admin: 07/24/18 18:17 Dose: 50 mg - Labs Labs: 07/25/18 07:10 07/25/18 07:10 PT 16.7 SECONDS (9.7-12.2) H 07/20/18 18:46 INR 1.5 07/20/18 18:46 APTT 26 SECONDS (21-34) 07/20/18 18:46 - Constitutional Appears: No Acute Distress - Head Exam Head Exam: ATRAUMATIC, NORMAL INSPECTION - Eye Exam Eye Exam: EOMI, Normal appearance, PERRL Pupil Exam: NORMAL ACCOMODATION - ENT Exam ENT Exam: Mucous Membranes Moist - Respiratory Exam Respiratory Exam: Clear to Ausculation Bilateral, NORMAL BREATHING PATTERN - Cardiovascular Exam Cardiovascular Exam: REGULAR RHYTHM, +S1, +S2 - GI/Abdominal Exam GI & Abdominal Exam: Soft, Normal Bowel Sounds. absent: Tenderness - Extremities Exam Additional comments: lymphedema noted in upper extremities and lower extremities bilaterally - Neurological Exam Neurological Exam: Alert, Awake, Oriented x3 - Psychiatric Exam Psychiatric exam: Normal Affect - Skin Skin Exam: Normal Color Assessment and Plan - Assessment and Plan (Free Text) Assessment: s/p Fall causing a fracture of the inferior pubic ramus Cardiology Consult: Dr. Blakely --> help appreciated - Rule out cardiac etiology. F/U Cardio recommendations - f/u ECHO Ortho Sonsult: Dr. King --> help appreciated - Imaging: * Head CT: Mild to moderate chronic white matter ischemic changes as above. Note that the possibility of a small hyperacute infarct not excluded.Mild generalized volume loss * Hip/Pelvis Xray: Left inferior pubic ring cortical irregularity and lucency probably relating to trauma/osseous avulsion- the chronicity of this is unknown. Consider noncontrast CT of the hip including the left hemipelvis for clarification if indicated. * Lumbar Spine Xray: No lumbar level suspect compression fracture. Degenerative extensive thoraco lumbar spondylosis noted. An scoliosis. Degenerative disc disease changes and exuberant facet hypertrophic arthrosis. The portions of the inferior thoracic spine which are not visually included on this exam have some mild decreased suggested vertebral body heights the chronicity of this appearance is unknown -in this patient's spine degenerative wedging is a consideration. * Hip CT: Acute comminuted mildly displaced fracture in the lateral aspect of the left inferior pubic ramus as described above. No evidence of acute fracture in the femur. No dislocation. * Pelvis CT: Minimally comminuted fracture fragments/osseous avulsed fracture fragment flakes left ischial tuberosity. No gross callus formation seen here. Inferred as acute or subacute. No hip fractures seen. Bilateral hip osteoarthrosis and inferior lumbar spondylosis. Nondisplaced left inferior pubic ramus fracture -acute/subacute appearing. Bilateral hamstring calcific tendinopathy right side greater than left. Subcutaneous edema findings more notable on the right side this patient with left-sided fracture findings. * f/u knee xray Cellulitis - On Vanc (started 07/20/18)-Patient allergic to PCN at this time. --> vanc discontinued 07/25/[address] Robert - Vanc trough (07/24/18): 17.5 - Mupirocin 1gm top bid - F/U additional ID recommendations Lymphedema - Venous dopplers: negative - Physical Therapy- F/U - Elevate extremities - Compression stockings - Lymphatic drainage management mechanisms - F/U ID recommendations in light of concurrent cellulitis Nodular Opacity - Asymptomatic - Chest xray: 78 mm faint nodular opacity projecting just above the elevated left hemidiaphragm of indeterminate significance, if any). Not appreciated such on prior studies. Consider noncontrast CT chest for further clarification. - Chest CT: The chest x-ray depicted 7 to 8 mm pulmonary nodular opacity at the left lung base near and elevated left hemidiaphragm is not appreciated on the CT. Summation of soft tissues fat of vascular structures along with some minimal pleural thickening changes are believe it is most likely explanation. Patient's nipple shadows are much further of lateral in position. Right posterior inferior calcified pleural base granuloma. Nonspecific posterior minimal pleural thickening/minimal fluid and minimal sub pleural subsegmental atelectasis. No suspect lymphadenopathy. Enlarged thyroid with probable calcification changes in the left thyroid gland. Consider thyroid ultrasound for correlation. Old hyper trophic healed right lateral rib fracture deformity. Hypertension - Norvasc 5 mg PO daily - Lasix 40mg po daily - Monitor Depression - Zoloft 50mg po bid Prophylaxis - Heparin SC Q12 - PPI 40 mg PO daily - PT and OT - Case Management: When patient is ready for discharge patient has been accepted to [facility] All management and planning per Dr. Rachelle Green.
[2018-07-25] MEDS: Pantoprazole 40 mg EC Tab PO SCH (10:16)
--- NOTE | 2018-07-25 10:51 | CP.PCM.PN ---
Subjective - Date & Time of Evaluation Date of Evaluation: 07/25/18 Time of Evaluation: 10:52 - Subjective Subjective: Patient not really complaining of any pain today. When prompted, says her back hurts a little. Denies knee pain. Review of Systems - Review of Systems All systems: reviewed and no additional remarkable complaints except - Musculoskeletal Musculoskeletal: As Par HPI Objective - Vital Signs/Intake and Output Vital Signs (last 24 hours): Temp Pulse Resp BP Pulse Ox 97.6 F 81 18 100/54 L 97 07/25/18 07:54 07/25/18 07:54 07/25/18 07:54 07/25/18 10:15 07/25/18 07:54 Intake and Output: 07/25/18 07/25/18 06:59 18:59 Output Total 200 Balance -200 - Medications Medications: Current Medications Albuterol/Ipratropium (Duoneb 3 Mg/0.5 Mg (3 Ml) Ud) 3 ml INH RQ6 [facility] Last Admin: 07/25/18 08:19 Dose: Not Given Amlodipine Besylate (Norvasc) 5 mg PO DAILY [facility] Last Admin: 07/25/18 10:18 Dose: Not Given Furosemide (Lasix) 40 mg IVP DAILY [facility] Last Admin: 07/25/18 10:15 Dose: Not Given Heparin Sodium (Porcine) (Heparin) 5,000 units SC Q12 [facility] Last Admin: 07/25/18 10:16 Dose: 5,000 units Vancomycin/Sodium Chloride (Vancomycin 1 Gm/Ns 200 Ml) 1 gm in 200 mls @ 133.333 mls/hr IVPB Q24H [facility] PRN Reason: Protocol Stop: 07/25/18 23:01 Last Admin: 07/25/18 00:54 Dose: 133.333 mls/hr Lactulose (Enulose) 20 gm PO DAILY [facility] Last Admin: 07/25/18 10:16 Dose: 20 gm Lorazepam (Ativan) 0.5 mg PO Q12 PRN PRN Reason: Anxiety Last Admin: 07/25/18 10:24 Dose: 0.5 mg Mupirocin (Bactroban Ointment) 1 gm TOP BID [facility] Last Admin: 07/24/18 18:17 Dose: 1 applic Pantoprazole Sodium (Protonix Ec Tab) 40 mg PO DAILY [facility] Last Admin: 07/25/18 10:16 Dose: 40 mg Sertraline HCl (Zoloft) 50 mg PO BID [facility] Last Admin: 07/25/18 10:16 Dose: 50 mg - Labs Labs: 07/25/18 07:10 07/25/18 07:10 PT 16.7 SECONDS (9.7-12.2) H 07/20/18 18:46 INR 1.5 07/20/18 18:46 APTT 26 SECONDS (21-34) 07/20/18 18:46 - Constitutional Appears: Well, No Acute Distress - Respiratory Exam Respiratory Exam: NORMAL BREATHING PATTERN - Cardiovascular Exam Additional comments: +DP/PT pulses - Extremities Exam Additional comments: Hip exam: full ROM (no pain with full AROM left hip, no pain with log roll/ traction, PROM), tenderness (to ischial tub) Knee exam: full ROM, swelling (mild laxity to valgus stress, no crepitus, mild effusion, not warm, generalized mild tendernes to knee, no pain wtih AROM), tenderness Ankle exam: FULL ROM - Neurological Exam Neurological Exam: Alert, Oriented x3 Additional comments: B feet deformity with toes flexed and equinuus - Psychiatric Exam Psychiatric exam: Normal Affect, Normal Mood - Skin Skin Exam: Dry, Intact, Normal Color, Warm Assessment and Plan (1) Fracture of left inferior pubic ramus Assessment & Plan: awaiting CT non operative will adjust WB after imaging official reports PT/OT VTE proph d/w Dr. King, agrees with above Status: Acute (2) Back pain Status: Acute (3) Degenerative arthritis of left knee Assessment & Plan: severe with valgus deformity awaiting official reading of xrays Status: Acute
--- NOTE | 2018-07-25 12:20 | CP.PCM.PN ---
Subjective - Date & Time of Evaluation Date of Evaluation: 07/25/18 Time of Evaluation: 12:10 - Subjective Subjective: dictated Objective - Vital Signs/Intake and Output Vital Signs (last 24 hours): Temp Pulse Resp BP Pulse Ox 97.6 F 81 18 123/58 L 97 07/25/18 07:54 07/25/18 07:54 07/25/18 07:54 07/25/18 12:08 07/25/18 07:54 Intake and Output: 07/25/18 07/25/18 06:59 18:59 Output Total 200 Balance -200 - Medications Medications: Current Medications Albuterol/Ipratropium (Duoneb 3 Mg/0.5 Mg (3 Ml) Ud) 3 ml INH RQ6 [facility] Last Admin: 07/25/18 08:19 Dose: Not Given Amlodipine Besylate (Norvasc) 5 mg PO DAILY [facility] Last Admin: 07/25/18 12:09 Dose: Not Given Furosemide (Lasix) 40 mg IVP DAILY [facility] Last Admin: 07/25/18 12:08 Dose: 40 mg Heparin Sodium (Porcine) (Heparin) 5,000 units SC Q12 [facility] Last Admin: 07/25/18 10:16 Dose: 5,000 units Vancomycin/Sodium Chloride (Vancomycin 1 Gm/Ns 200 Ml) 1 gm in 200 mls @ 133.333 mls/hr IVPB Q24H [facility] PRN Reason: Protocol Stop: 07/25/18 23:01 Last Admin: 07/25/18 00:54 Dose: 133.333 mls/hr Lactulose (Enulose) 20 gm PO DAILY [facility] Last Admin: 07/25/18 12:06 Dose: Not Given Lorazepam (Ativan) 0.5 mg PO Q12 PRN PRN Reason: Anxiety Last Admin: 07/25/18 10:24 Dose: 0.5 mg Mupirocin (Bactroban Ointment) 1 gm TOP BID [facility] Last Admin: 07/24/18 18:17 Dose: 1 applic Pantoprazole Sodium (Protonix Ec Tab) 40 mg PO DAILY [facility] Last Admin: 07/25/18 10:16 Dose: 40 mg Sertraline HCl (Zoloft) 50 mg PO BID [facility] Last Admin: 07/25/18 10:16 Dose: 50 mg - Labs Labs: 07/25/18 07:10 07/25/18 07:10 PT 16.7 SECONDS (9.7-12.2) H 07/20/18 18:46 INR 1.5 07/20/18 18:46 APTT 26 SECONDS (21-34) 07/20/18 18:46
--- NOTE | 2018-07-25 13:16 | CT ---
Date of service: 07/25/2018 PROCEDURE: CT Chest without contrast HISTORY: nodular opacity seen on chest xray COMPARISON: None available. TECHNIQUE: Contiguous axial images were obtained through the chest without intravenous contrast enhancement. Sagittal and coronal reconstructions were performed. Radiation dose (DLP): mGy-cm. This CT exam was performed using one or more of the following dose reduction techniques: Automated exposure control, adjustment of the mA and/or kV according to patient size, and/or use of iterative reconstruction technique. FINDINGS: LUNGS: PE chest x-ray depicted 78 mm nodular opacity projecting over left lung base near the elevated left hemidiaphragm is not appreciated as a distinct left pulmonary nodule on the CT -summation of soft tissues is believe more likely. There is some mild left and lesser right posterior pleural thickening and some minute minimal subsegmental atelectatic changes at both posterior inferior lung lobes Calcified sub cm pulmonary pleural-based granuloma MEDIASTINUM: Tortuous thoracic aorta. No aneurysm. Mild cardiomegaly. Coronary artery calcifications. No pericardial fusion. Main pulmonary artery unremarkable. No vascular congestion. No suspect lymphadenopathy. Enlarged thyroid gland with hyperdense appearing left thyroid gland tissue for this consider thyroid ultrasound PLEURA: Minimal dependent posterior pleural thickening and pleural fluid. No pneumothorax. BONES: No acute fracture old healed hyper trophic lateral right rib fracture noted on CT less apparent on the chest x-ray. No destructive lesion. Exuberant thoraco lumbar spondylosis UPPER ABDOMEN: Grossly unremarkable. OTHER FINDINGS: None. IMPRESSION: The chest x-ray depicted 7 to 8 mm pulmonary nodular opacity at the left lung base near and elevated left hemidiaphragm is not appreciated on the CT. Summation of soft tissues fat of vascular structures along with some minimal pleural thickening changes are believe it is most likely explanation. Patient's nipple shadows are much further of lateral in position. Right posterior inferior calcified pleural base granuloma. Nonspecific posterior minimal pleural thickening/minimal fluid and minimal sub pleural subsegmental atelectasis No suspect lymphadenopathy. Enlarged thyroid with probable calcification changes in the left thyroid gland. Consider thyroid ultrasound for correlation. Old hyper trophic healed right lateral rib fracture deformity.
--- NOTE | 2018-07-25 13:57 | CT ---
Date of service: 07/25/2018 PROCEDURE: CT Pelvis without contrast HISTORY: back pain, r/o sacral fx, L inf ramus fx COMPARISON: Bilateral hips x-ray 07/20/2018 TECHNIQUE: Contiguous axial images of the pelvis . No intravenous or oral contrast given. Coronal and sagittal reformats generated. Radiation dose: Total exam DLP = 663 mGy-cm. This CT exam was performed using one or more of the following dose reduction techniques: Automated exposure control, adjustment of the mA and/or kV according to patient size, and/or use of iterative reconstruction technique. FINDINGS: BLADDER: De Leon catheter within a nondistended bladder. Bladder gas - likely De Leon catheter introduced. REPRODUCTIVE ORGANS: Unremarkable. VISUALIZED BOWEL: Rectosigmoid diverticulosis PERITONEUM: Unremarkable, as visualized. No free fluid. No free air. LYMPH NODES: Unremarkable. No enlarged lymph nodes. BONES: Right and lesser left ischial tuberosity calcific head hamstring tendinopathy changes. These are in addition to left ischial tuberosity small comminuted fractures/tiny flake avulsed fracture fragments here. A mid left inferior pubic ramus nondisplaced fracture also suggested (axial series 3, image 84) No sacral fracture seen. Lumbar spondylosis L5-S1 facet hypertrophic arthrosis - L5-S1 lateral recess stenosis probable. No SI joint diastases VASCULATURE: Atherosclerotic vascular calcifications present. OTHER FINDINGS: Most of the subcutaneous fat edema is ulnar right side overseas axis series 5, image 32 No gross intra muscular hematoma seen IMPRESSION: Minimally comminuted fracture fragments/osseous avulsed fracture fragment flakes left ischial tuberosity. No gross callus formation seen here. Inferred as acute or subacute. No hip fractures seen. Bilateral hip osteoarthrosis and inferior lumbar spondylosis. Nondisplaced left inferior pubic ramus fracture -acute/subacute appearing Bilateral hamstring calcific tendinopathy right side greater than left Subcutaneous edema findings more notable on the right side this patient with left-sided fracture findings. Comments: Study marked for PA review .
--- NOTE | 2018-07-25 15:25 | RAD ---
Date of service: 07/25/2018 PROCEDURE: Left Knee Radiographs. HISTORY: Pain. COMPARISON: None. FINDINGS: BONES: Generalized osteopenia. JOINTS: Tricompartmental osteoarthrosis. There are well corticated ossifications inferior to the patella and a amorphous ossification in the posterior knee joint- large pedunculated osteophytes with or without loose bodies here compatible with this. JOINT EFFUSION: None. OTHER FINDINGS: None. IMPRESSION: Generalized osteopenia. No definitive fracture seen. Osteoarthrosis. Possibly a concomitant loose bodies not excluded.
--- NOTE | 2018-07-25 18:06 | CP.PCM.PN ---
Subjective - Date & Time of Evaluation Date of Evaluation: 07/25/18 Time of Evaluation: 08:45 - Subjective Subjective: clinically same Objective - Vital Signs/Intake and Output Vital Signs (last 24 hours): Temp Pulse Resp BP Pulse Ox 97.8 F 90 18 105/49 L 95 07/25/18 16:00 07/25/18 16:00 07/25/18 16:00 07/25/18 16:00 07/25/18 16:00 Intake and Output: 07/25/18 07/25/18 06:59 18:59 Output Total 200 500 Balance -200 -500 - Medications Medications: Current Medications Albuterol/Ipratropium (Duoneb 3 Mg/0.5 Mg (3 Ml) Ud) 3 ml INH RQ6 [facility] Last Admin: 07/25/18 13:45 Dose: Not Given Amlodipine Besylate (Norvasc) 5 mg PO DAILY [facility] Last Admin: 07/25/18 12:09 Dose: Not Given Furosemide (Lasix) 40 mg PO DAILY [facility] Heparin Sodium (Porcine) (Heparin) 5,000 units SC Q12 [facility] Last Admin: 07/25/18 10:16 Dose: 5,000 units Lactulose (Enulose) 20 gm PO DAILY [facility] Last Admin: 07/25/18 12:06 Dose: Not Given Lorazepam (Ativan) 0.5 mg PO Q12 PRN PRN Reason: Anxiety Last Admin: 07/25/18 10:24 Dose: 0.5 mg Mupirocin (Bactroban Ointment) 1 gm TOP BID [facility] Last Admin: 07/25/18 12:48 Dose: 1 applic Pantoprazole Sodium (Protonix Ec Tab) 40 mg PO DAILY [facility] Last Admin: 07/25/18 10:16 Dose: 40 mg Sertraline HCl (Zoloft) 50 mg PO BID [facility] Last Admin: 07/25/18 17:59 Dose: 50 mg - Labs Labs: 07/25/18 07:10 07/25/18 07:10 PT 16.7 SECONDS (9.7-12.2) H 07/20/18 18:46 INR 1.5 07/20/18 18:46 APTT 26 SECONDS (21-34) 07/20/18 18:46 - Constitutional Appears: Well - Head Exam Head Exam: ATRAUMATIC, NORMAL INSPECTION, NORMOCEPHALIC - Eye Exam Eye Exam: EOMI, Normal appearance, PERRL Pupil Exam: NORMAL ACCOMODATION, PERRL - ENT Exam ENT Exam: Mucous Membranes Moist, Normal Exam - Neck Exam Neck Exam: Full ROM, Normal Inspection. absent: Lymphadenopathy - Respiratory Exam Respiratory Exam: Decreased Breath Sounds - Cardiovascular Exam Cardiovascular Exam: REGULAR RHYTHM, +S1, +S2 - GI/Abdominal Exam GI & Abdominal Exam: Soft, Diminished Bowel Sounds - Rectal Exam Rectal Exam: Deferred
--- NOTE | 2018-07-25 20:05 | PN ---
Copied To: Jordan Robert MD Attending MD: Jordan Robert MD DATE: 07/25/2018 SUBJECTIVE: The patient is afebrile. She handed over me the phone of a friend who was calling her. She looks good, but she is complaining of back pain and she had a lot of CAT scans done. I am covering for Dr. Calderon and I saw this patient. She still complains of back. Denies any knee pains. PHYSICAL EXAMINATION: VITAL SIGNS: Pulse is 81, blood pressure 112/68, respirations are 18. HEENT: Head is atraumatic, normocephalic. NECK: Supple. LUNGS: Clear. HEART: S1, S2 regular. ABDOMEN: Soft, nontender. No guarding. No rigidity present. EXTREMITIES: Have no cellulitis. SKIN: Intact. Normal color. LABORATORY DATA: Labs are noted. Labs show white count is 4.1, hemoglobin 11.9, hematocrit 34.5, platelet count is 160. BUN is 25, creatinine 0.7, and vanco trough was 12.1. We will discontinue vancomycin at this time. ASSESSMENT AND PLAN: At this time, she has degenerative arthritis of the left knee according to the consultants and the patient's cellulitis is better, for which she was seen, but not able to walk. So at this time, I would discontinue vancomycin and she needs to get rehabilitation. Jordan Robert MD
[2018-07-26] MEDS: Albuterol-Ipratrop 3 mg / 0.5 (3 ml) UD INH SCH ×3 (02:52→13:08)
[2018-07-26 07:29] LABS: BASO % 0.1 % (0.0-2.0); EOS # 0.1 K/uL (0.0-0.7); EOS % 1.5 % (0.0-4.0); HEMOGLOBIN 11.8 g/dL (11.0-16.0); LYMPH # 0.9 K/uL (1.0-4.3); LYMPH % 20.3 % (20.0-40.0); MEAN CELL VOLUME 104.9 fL (81.0-99.0); MEAN CORPUSCULAR HEMOGLOBIN 37.1 pg (27.0-31.0); MEAN CORPUSCULAR HGB CONC 35.4 g/dL (33.0-37.0); MEAN PLATELET VOLUME 7.2 fL (7.2-11.7); MONO # 0.3 K/uL (0.0-0.8); MONO % 7.9 % (0.0-10.0); NEUT # 3.1 K/uL (1.8-7.0); NEUT % 70.2 % (50.0-75.0); NRBC % 0.3 % (0.0-2.0); RBC 3.17 Mil/uL (3.80-5.20); RED CELL DISTRIBUTION WIDTH 14.6 % (11.5-14.5); WHITE BLOOD COUNT 4.4 K/uL (4.8-10.8)
--- NOTE | 2018-07-26 07:42 | CP.PCM.CON ---
History of Present Illness - History of Present Illness History of Present Illness: consult dictated POST FALL LEG WEAKNESS NEED MRI L/S SPINE PT Past Patient History - Past Medical History & Family History Past Medical History?: Yes Past Family History: Reviewed and not pertinent - Past Social History Smoking Status: Never Smoked - CARDIAC Hx Cardiac Disorders: Yes Hx Hypertension: Yes - PULMONARY Hx Respiratory Disorders: Yes Hx Asthma: Yes - NEUROLOGICAL Hx Neurological Disorder: No - HEENT Hx HEENT Problems: No - RENAL Hx Chronic Kidney Disease: No - ENDOCRINE/METABOLIC Hx Hypothyroidism: Yes - HEMATOLOGICAL/ONCOLOGICAL Hx Blood Disorders: No - INTEGUMENTARY Hx Dermatological Problems: No - MUSCULOSKELETAL/RHEUMATOLOGICAL Hx Arthritis: Yes (BACK , KNEE + SCOLIOSIS) - GASTROINTESTINAL Hx Gastrointestinal Disorders: No - GENITOURINARY/GYNECOLOGICAL Hx Genitourinary Disorders: No - PSYCHIATRIC Hx Psychophysiologic Disorder: Yes Hx Anxiety: Yes Hx Substance Use: No - SURGICAL HISTORY Hx Surgeries: Yes Hx Cholecystectomy: Yes - ANESTHESIA Hx Anesthesia: Yes Hx Anesthesia Reactions: No Hx Malignant Hyperthermia: No Has any member of the family had a problem w/ anesthesia?: No Meds Allergies/Adverse Reactions: Allergies Allergy/AdvReac Type Severity Reaction Status Date / Time aspirin Allergy Verified 07/20/18 16:03 codeine Allergy Verified 07/20/18 16:03 cortisone Allergy Verified 07/20/18 16:03 lidocaine Allergy Verified 07/20/18 16:03 Penicillins Allergy Verified 07/20/18 16:03 - Medications Medications: Current Medications Albuterol/Ipratropium (Duoneb 3 Mg/0.5 Mg (3 Ml) Ud) 3 ml INH RQ6 [facility] Last Admin: 07/26/18 02:52 Dose: Not Given Amlodipine Besylate (Norvasc) 5 mg PO DAILY [facility] Last Admin: 07/25/18 12:09 Dose: Not Given Furosemide (Lasix) 40 mg PO DAILY [facility] Heparin Sodium (Porcine) (Heparin) 5,000 units SC Q12 [facility] Last Admin: 07/25/18 22:06 Dose: 5,000 units Lactulose (Enulose) 20 gm PO DAILY [facility] Last Admin: 07/25/18 12:06 Dose: Not Given Lorazepam (Ativan) 0.5 mg PO Q12 PRN PRN Reason: Anxiety Last Admin: 07/25/18 10:24 Dose: 0.5 mg Mupirocin (Bactroban Ointment) 1 gm TOP BID [facility] Last Admin: 07/25/18 22:06 Dose: 1 applic Pantoprazole Sodium (Protonix Ec Tab) 40 mg PO DAILY [facility] Last Admin: 07/25/18 10:16 Dose: 40 mg Results - Vital Signs Recent Vital Signs: Last Vital Signs Temp 98.1 F 07/25/18 23:15 Pulse 82 07/26/18 07:18 Resp 20 07/25/18 23:15 BP 101/59 L 07/25/18 23:15 Pulse Ox 97 07/25/18 23:15 - Labs Result Diagrams: 07/26/18 07:06 07/25/18 07:10 Labs: Laboratory Results - last 24 hr 07/25/18 07/25/18 07/26/18 07:10 07:10 07:06 WBC 4.1 L 4.4 L RBC 3.26 L 3.17 L Hgb 11.9 11.8 Hct 34.5 33.2 L MCV 105.8 H 104.9 H MCH 36.5 H 37.1 H MCHC 34.5 35.4 RDW 14.7 H 14.6 H Plt Count 160 152 MPV 7.1 L 7.2 Neut % (Auto) 58.9 70.2 Lymph % (Auto) 26.1 20.3 Grayson % (Auto) 11.1 H 7.9 Eos % (Auto) 3.5 1.5 Baso % (Auto) 0.4 0.1 Neut # (Auto) 2.4 3.1 Lymph # (Auto) 1.1 0.9 L Grayson # (Auto) 0.5 0.3 Eos # (Auto) 0.1 0.1 Baso # (Auto) 0.0 0.0 Differential Comment Sodium 140 Potassium 3.6 Chloride 102 Carbon Dioxide 31 H Anion Gap 10 BUN 25 H Creatinine 0.7 Est GFR ( Amer) > 60 Est GFR (Non-Af Amer) > 60 Random Glucose 97 Calcium 7.9 L Phosphorus 3.6 Magnesium 1.8 Total Bilirubin 2.2 H AST 50 H D ALT 28 Alkaline Phosphatase 126 Total Protein 5.3 L Albumin 2.3 L Globulin 3.0 Albumin/Globulin Ratio 0.8 L
[2018-07-26 07:47] LABS: ALB/GLOB RATIO 0.7 (1.0-2.1); ALBUMIN 2.3 g/dL (3.5-5.0); ALT/SGPT 26 U/L (9-52); AST/SGOT 53 U/L (14-36); BLOOD UREA NITROGEN 30 mg/dL (7-17); CALCIUM 7.8 mg/dl (8.6-10.4); GFR NON-AFRICAN AMERICAN > 60
[2018-07-26] MEDS: Pantoprazole 40 mg EC Tab PO SCH (10:41)
[2018-07-26 11:59] LABS: FREE T4 1.05 ng/dL (0.78-2.19)
--- NOTE | 2018-07-26 13:10 | CP.PCM.PN ---
Subjective - Date & Time of Evaluation Date of Evaluation: 07/26/18 Time of Evaluation: 13:00 - Subjective Subjective: Patient states she has no pain. She says she is feeling better. She is requesting to go home, advised patient she needs PT and has to be able to do more independently due to recent falls. D/w Daughter via phone. Agrees to rehab. States that patient does no more than stand and pivot at baseline, that she is not ambulatory. Review of Systems - Review of Systems All systems: reviewed and no additional remarkable complaints except - Musculoskeletal Musculoskeletal: As Par HPI Objective - Vital Signs/Intake and Output Vital Signs (last 24 hours): Temp Pulse Resp BP Pulse Ox 97.7 F 71 18 122/67 93 L 07/26/18 07:40 07/26/18 11:59 07/26/18 07:40 07/26/18 10:41 07/26/18 07:40 Intake and Output: 07/26/18 07/26/18 06:59 18:59 Intake Total 320 Output Total 450 Balance -130 - Medications Medications: Current Medications Albuterol/Ipratropium (Duoneb 3 Mg/0.5 Mg (3 Ml) Ud) 3 ml INH RQ6 [facility] Last Admin: 07/26/18 02:52 Dose: Not Given Amlodipine Besylate (Norvasc) 5 mg PO DAILY [facility] Last Admin: 07/26/18 10:41 Dose: 5 mg Furosemide (Lasix) 40 mg PO DAILY [facility] Last Admin: 07/26/18 10:41 Dose: 40 mg Heparin Sodium (Porcine) (Heparin) 5,000 units SC Q12 [facility] Last Admin: 07/26/18 10:41 Dose: 5,000 units Lactulose (Enulose) 20 gm PO DAILY [facility] Last Admin: 07/26/18 10:42 Dose: 20 gm Lorazepam (Ativan) 0.5 mg PO Q12 PRN PRN Reason: Anxiety Last Admin: 07/26/18 10:41 Dose: 0.5 mg Mupirocin (Bactroban Ointment) 1 gm TOP BID [facility] Last Admin: 07/26/18 10:42 Dose: 1 applic Pantoprazole Sodium (Protonix Ec Tab) 40 mg PO DAILY [facility] Last Admin: 07/26/18 10:41 Dose: 40 mg - Labs Labs: 07/26/18 07:06 07/26/18 07:06 PT 16.7 SECONDS (9.7-12.2) H 07/20/18 18:46 INR 1.5 07/20/18 18:46 APTT 26 SECONDS (21-34) 07/20/18 18:46 - Constitutional Appears: Well, No Acute Distress - Head Exam Head Exam: ATRAUMATIC - Neck Exam Neck Exam: Full ROM - Respiratory Exam Respiratory Exam: NORMAL BREATHING PATTERN - Cardiovascular Exam Additional comments: +DP/PT pules - Extremities Exam Additional comments: calves soft NT neg homans no erythema - Back Exam Back Exam: NORMAL INSPECTION, tenderness (minimal) - Neurological Exam Neurological Exam: Alert, Awake, Oriented x3 Neuro motor strength exam: Left Lower Extremity: 5, Right Lower Extremity: 5 Additional comments: no change to chronic def feet - Psychiatric Exam Psychiatric exam: Normal Affect, Normal Mood - Skin Skin Exam: Dry, Intact, Normal Color, Warm Assessment and Plan (1) Fracture of left inferior pubic ramus Assessment & Plan: no other fx appreciated on CT will attempt WBAT for PT to maximize ambulation potential VTE proph d/w Dr. King, agrees with above ortho stable for d/c to rehab f/u 2 weeks call for appointment Status: Acute (2) Back pain Status: Acute (3) Degenerative arthritis of left knee Assessment & Plan: no fx on xrays PT Status: Acute Radiology Interpretation - Radiology Interpretation #2 Interpretation: Patient Name / ID : BRENTON CASTRO / [id number] Exam Date : 07/25/2018 08:47:55 ( Approved ) Study Comment : Sex / Age : F / 82Y Creator : Socorro Rose V. Dictator : Socorro Rose V. Practice Billing Associate : Supervisor Prepress : Socorro Rose V. Approver2 : Report Date : 07/25/2018 15:19:27 My Comment : Date of service: 07/25/2018 PROCEDURE: Left Knee Radiographs. HISTORY: Pain. COMPARISON: None. FINDINGS: BONES: Generalized osteopenia. JOINTS: Tricompartmental osteoarthrosis. There are well corticated ossifications inferior to the patella and a amorphous ossification in the posterior knee joint - large pedunculated osteophytes with or without loose bodies here compatible with this. JOINT EFFUSION: None. OTHER FINDINGS: None. IMPRESSION: Generalized osteopenia. No definitive fracture seen. Osteoarthrosis. Possibly a concomitant loose bodies not excluded. - Radiology Interpretation #3 Interpretation: atient Name / ID : BRENTON CASTRO / [id number] Exam Date : 07/25/2018 08:34:32 ( Approved ) Study Comment : Sex / Age : F / 82Y Creator : Diann Watson Dictator : Socorro Rose V. Practice Billing Associate : Supervisor Prepress : Socorro Rose V. Approver2 : Report Date : 07/25/2018 08:49:15 My Comment : Date of service: 07/25/2018 PROCEDURE: CT Pelvis without contrast HISTORY: back pain, r/o sacral fx, L inf ramus fx COMPARISON: Bilateral hips x-ray 07/20/2018 TECHNIQUE: Contiguous axial images of the pelvis . No intravenous or oral contrast given. Coronal and sagittal reformats generated. Radiation dose: Total exam DLP = 663 mGy-cm. This CT exam was performed using one or more of the following dose reduction techniques: Automated exposure control, adjustment of the mA and/or kV according to patient size, and/or use of iterative reconstruction technique. FINDINGS: BLADDER: De Leon catheter within a nondistended bladder. Bladder gas - likely De Leon catheter introduced. REPRODUCTIVE ORGANS: Unremarkable. VISUALIZED BOWEL: Rectosigmoid diverticulosis PERITONEUM: Unremarkable, as visualized. No free fluid. No free air. LYMPH NODES: Unremarkable. No enlarged lymph nodes. BONES: Right and lesser left ischial tuberosity calcific head hamstring tendinopathy changes. These are in addition to left ischial tuberosity small comminuted fractures/tiny flake avulsed fracture fragments here. A mid left inferior pubic ramus nondisplaced fracture also suggested (axial series 3, image 84) No sacral fracture seen. Lumbar spondylosis L5-S1 facet hypertrophic arthrosis - L5-S1 lateral recess stenosis probable. No SI joint diastases VASCULATURE: Atherosclerotic vascular calcifications present. OTHER FINDINGS: Most of the subcutaneous fat edema is ulnar right side overseas axis series 5, image 32 No gross intra muscular hematoma seen IMPRESSION: Minimally comminuted fracture fragments/osseous avulsed fracture fragment flakes left ischial tuberosity. No gross callus formation seen here. Inferred as acute or subacute. No hip fractures seen. Bilateral hip osteoarthrosis and inferior lumbar spondylosis. Nondisplaced left inferior pubic ramus fracture -acute/subacute appearing Bilateral hamstring calcific tendinopathy right side greater than left Subcutaneous edema findings more notable on the right side this patient with left-sided fracture findings. Comments: Study marked for PA review .
--- NOTE | 2018-07-26 13:38 | CP.PCM.PN ---
Subjective - Date & Time of Evaluation Date of Evaluation: 07/26/18 Time of Evaluation: 09:00 - Subjective Subjective: Progress Note for Dr. Bonilla Green's Service Patient was seen and examined at bedside. Patient reports she feels better today. She is refusing MRI due to all the exams that were done before. She also states she does not want to go to [facility]. Objective - Vital Signs/Intake and Output Vital Signs (last 24 hours): Temp Pulse Resp BP Pulse Ox 97.7 F 71 18 122/67 93 L 07/26/18 07:40 07/26/18 11:59 07/26/18 07:40 07/26/18 10:41 07/26/18 07:40 Intake and Output: 07/26/18 07/26/18 06:59 18:59 Intake Total 320 Output Total 450 Balance -130 - Medications Medications: Current Medications Albuterol/Ipratropium (Duoneb 3 Mg/0.5 Mg (3 Ml) Ud) 3 ml INH RQ6 [facility] Last Admin: 07/26/18 13:08 Dose: 3 ml Amlodipine Besylate (Norvasc) 5 mg PO DAILY [facility] Last Admin: 07/26/18 10:41 Dose: 5 mg Furosemide (Lasix) 40 mg PO DAILY [facility] Last Admin: 07/26/18 10:41 Dose: 40 mg Heparin Sodium (Porcine) (Heparin) 5,000 units SC Q12 [facility] Last Admin: 07/26/18 10:41 Dose: 5,000 units Lactulose (Enulose) 20 gm PO DAILY [facility] Last Admin: 07/26/18 10:42 Dose: 20 gm Lorazepam (Ativan) 0.5 mg PO Q12 PRN PRN Reason: Anxiety Last Admin: 07/26/18 10:41 Dose: 0.5 mg Mupirocin (Bactroban Ointment) 1 gm TOP BID [facility] Last Admin: 07/26/18 10:42 Dose: 1 applic Pantoprazole Sodium (Protonix Ec Tab) 40 mg PO DAILY [facility] Last Admin: 07/26/18 10:41 Dose: 40 mg - Labs Labs: 07/26/18 07:06 07/26/18 07:06 PT 16.7 SECONDS (9.7-12.2) H 07/20/18 18:46 INR 1.5 08/23/18 18:46 APTT 26 SECONDS (21-34) 07/20/18 18:46 - Additional Findings Additional findings: - Constitutional Appears: No Acute Distress - Head Exam Head Exam: ATRAUMATIC, NORMAL INSPECTION - Eye Exam Eye Exam: EOMI, Normal appearance, PERRL Pupil Exam: NORMAL ACCOMODATION - ENT Exam ENT Exam: Mucous Membranes Moist - Respiratory Exam Respiratory Exam: Clear to Ausculation Bilateral, NORMAL BREATHING PATTERN - Cardiovascular Exam Cardiovascular Exam: REGULAR RHYTHM, +S1, +S2 - GI/Abdominal Exam GI & Abdominal Exam: Soft, Normal Bowel Sounds. absent: Tenderness - Extremities Exam Additional comments: lymphedema noted in upper extremities and lower extremities bilaterally - Neurological Exam Neurological Exam: Alert, Awake, Oriented x3 - Psychiatric Exam Psychiatric exam: Normal Affect - Skin Skin Exam: Normal Color Assessment and Plan - Assessment and Plan (Free Text) Plan: s/p Fall causing a fracture of the inferior pubic ramus Cardiology Consult: Dr. Blakely --> help appreciated - Rule out cardiac etiology. - ECHO: pending official read Ortho Consult: Dr. King --> help appreciated - Imaging: * Head CT: Mild to moderate chronic white matter ischemic changes as above. Note that the possibility of a small hyperacute infarct not excluded.Mild generalized volume loss * Hip/Pelvis Xray: Left inferior pubic ring cortical irregularity and lucency probably relating to trauma/osseous avulsion- the chronicity of this is unknown. Consider noncontrast CT of the hip including the left hemipelvis for clarification if indicated. * Lumbar Spine Xray: No lumbar level suspect compression fracture. Degenerative extensive thoraco lumbar spondylosis noted. An scoliosis. Degenerative disc disease changes and exuberant facet hypertrophic arthrosis. The portions of the inferior thoracic spine which are not visually included on this exam have some mild decreased suggested vertebral body heights the chronicity of this appearance is unknown -in this patient's spine degenerative wedging is a consideration. * Hip CT: Acute comminuted mildly displaced fracture in the lateral aspect of the left inferior pubic ramus as described above. No evidence of acute fracture in the femur. No dislocation. * Pelvis CT: Minimally comminuted fracture fragments/osseous avulsed fracture fragment flakes left ischial tuberosity. No gross callus formation seen here. Inferred as acute or subacute. No hip fractures seen. Bilateral hip osteoarthrosis and inferior lumbar spondylosis. Nondisplaced left inferior pubic ramus fracture -acute/subacute appearing. Bilateral hamstring calcific tendinopathy right side greater than left. Subcutaneous edema findings more notable on the right side this patient with left-sided fracture findings. * Knee xray: osteopenia no fracture noted Lymphedema - Venous dopplers: negative - Elevate extremities - Compression stockings - Lymphatic drainage management mechanisms Hypertension - Norvasc 5 mg PO daily - Lasix 40mg po daily - Monitor Depression - Zoloft 50mg po bid Hx Hypothyroidism - TSH 5.51 - Will resume home dose of synthroid Cellulitis - RESOLVED - On Vanc (started 07/20/18)-Patient allergic to PCN at this time. --> vanc discontinued 07/25/[address] Robert - Vanc trough (07/24/18): 17.5 - Mupirocin 1gm top bid Nodular Opacity- ruled out - Asymptomatic - Chest xray: 78 mm faint nodular opacity projecting just above the elevated left hemidiaphragm of indeterminate significance, if any). Not appreciated such on prior studies. Consider noncontrast CT chest for further clarification. - Chest CT: The chest x-ray depicted 7 to 8 mm pulmonary nodular opacity at the left lung base near and elevated left hemidiaphragm is not appreciated on the CT. Summation of soft tissues fat of vascular structures along with some minimal pleural thickening changes are believe it is most likely explanation. Patient's nipple shadows are much further of lateral in position. Right posterior inferior calcified pleural base granuloma. Nonspecific posterior minimal pleural thickening/minimal fluid and minimal sub pleural subsegmental atelectasis. No suspect lymphadenopathy. Enlarged thyroid with probable calcification changes in the left thyroid gland. Consider thyroid ultrasound for correlation. Old hyper trophic healed right lateral rib fracture deformity. Prophylaxis - Heparin SC Q12 - PPI 40 mg PO daily - PT and OT - Case Management: Arranged for [facility] but pending PT reccs if patient can go to home, with home PT All medical management per Dr. Bonilla Green Case discussed with Dr. Bonilla Green, Penny Garcia DO, PGY-2
[2018-07-26 16:03] VITALS: BP 104/62; PULSE 97; RESP 20; TEMP 98.9; O2SAT 95
--- NOTE | 2018-07-26 19:02 | CON ---
Copied To: Adiel Reese MD Attending MD: Adiel Reese MD DATE OF EVALUATION: 07/26/2018 ATTENDING PHYSICIAN: Fer Green MD LOCATION: The patient's room #665, bed B. REASON FOR CONSULTATION: Back pain and poor ambulation. CHIEF COMPLAINT: The patient was brought in with history of fall from the chair and inability to walk for the last 5 days prior to the admission. From neurological point of view, I was called in to evaluate her for further management. HISTORY OF PRESENT ILLNESS: Ms. Deandra Ndiaye is an 82-year-old right-handed thinly built female presenting with inability to walk ever since she fell from the chair. No history of radicular pain. No significant back pain, not associated with bowel or bladder incontinence. Denies neck pain. No history of headache. No history of visual or bulbar dysfunction. PAST MEDICAL HISTORY: Anxiety, arthritis, asthma, hypertension, and hypothyroidism. PAST SURGICAL HISTORY: Cholecystectomy. PERSONAL HISTORY Denies smoking or alcohol use. ALLERGIES: ASPIRIN, CODEINE, CORTISONE, LYRICA, AND PENICILLIN. REVIEW OF SYSTEMS: 12-point systems been reviewed. From neuro, inability to walk. MEDICATIONS: Mupirocin, Ativan p.r.n., heparin, Lasix, Norvasc, and Protonix. PHYSICAL EXAMINATION: VITAL SIGNS: Blood pressure 101/59, mean arterial pressure of 73, respiratory rate 18, temperature afebrile. NECK: Supple. No carotid bruits. HEART: Sounds are regular. CHEST: Fair air entry. EXTREMITIES: Possible lymphedema in both lower extremities. Legs are externally rotated. NEUROLOGIC EXAMINATION: MENTAL STATUS EXAMINATION: She is awake, alert and oriented to person, place and time. Speech is clear. However, because of the dentures, speech is dysarthric. CRANIAL NERVE EXAMINATION: Responds to visual threat. Pupils reactive to light. Extraocular movement decreased in all direction. No facial or sensory deficit. No facial asymmetry. Hearing is normal. Tongue is midline. Good gag. MOTOR EXAMINATION: On outstretched hand with eyes closed, no drift noted. Power is symmetric on either side. Deep tendon reflexes are absent. Plantars are downgoing. SENSORY EXAMINATION: Responds to pain symmetrically on both sides. No cortical sensory loss. COORDINATION: [id number] test is intact. GAIT: Deferred at this time because of her back pain. Examination of the spine shows tenderness over the lumbosacral area and the pubic region. LABORATORY DATA: WBC 4.4, hemoglobin 11.8, hematocrit 33.2, and MCV 104.9. Sodium 140, potassium 3.6, chloride 102, bicarbonate 31, BUN 25, creatinine 0.7, and GFR more than 60. CT of the hip showed comminuted fracture at the pubic ramus on her left side. CT of the head, no acute pathology is noted except atrophy and small vessel disease. CONCLUSION: Ms. Deandra Ndiaye being presenting with the fall associating with leg weakness and pathological fracture. The current examination shows no myelopathy, significant peripheral neuropathy. RECOMMENDATIONS: 1. When medically stable, the patient should start physical therapy. 2. DVT prophylaxis. 3. MRI of the lumbosacral spine to rule out any acute pathology. 4. The patient will be followed closely with you. Adiel Reese MD MTDD
[2018-07-27] MEDS ORDERED: Levothyroxine 25 MCG TAB PO SCH (06:30)
--- NOTE | 2018-07-27 11:10 | CARD ---
APPROVED REPORT Date of service: 07/24/2018 EXAM: Two-dimensional and M-mode echocardiogram with Doppler and color Doppler. Other Information Quality : TDSRhythm : INDICATION Peripheral Edema Congestive Heart Failure 2D DIMENSIONS IVSd0.9 (0.7-1.1cm)LVDd3.3 (3.9-5.9cm) PWd0.8 (0.7-1.1cm)LVDs1.8 (2.5-4.0cm) FS (%) 45.7 %LVEF (%)70.0 (>50%) M-Mode DIMENSIONS Left Atrium (MM)3.11 (2.5-4.0cm)IVSd0.88 (0.7-1.1cm) Aortic Root2.91 (2.2-3.7cm)LVDd4.42 (4.0-5.6cm) Aortic Cusp Exc.1.44 (1.5-2.0cm)PWd0.78 (0.7-1.1cm) FS (%) 42 %LVDs2.55 (2.0-3.8cm) LVEF (%)74 (>50%) Aortic Valve AI P 1/2 [id number] Mitral Valve MV E Ggipdmfr18.6cm/sMV A Ludaxhhg985.0cm/sE/A ratio0.7 TDI E/Lateral E'0.0E/Medial E'0.0 Tricuspid Valve TR Peak [id number]/sTR Peak Gr.[id number] LEFT VENTRICLE The left ventricle is normal size. There is normal left ventricular wall thickness. The left ventricular function is normal. The left ventricular ejection fraction is within the normal range. There is normal LV segmental wall motion. Transmitral Doppler flow pattern is abnormal. RIGHT VENTRICLE The right ventricle is normal size. ATRIA The left atrium size is normal. The right atrium size is normal. AORTIC VALVE There is trace to mild aortic regurgitation. MITRAL VALVE Mitral regurgitation is trace. TRICUSPID VALVE There is mild to moderate tricuspid regurgitation. <Conclusion> Normal LV systolic function. Diastolic dysfunction. Normal chamber size. Miild AR. Trace MR. Mild to moderate TR.
== END 2018-07-26 16:32 | disposition home health service (06) | DRG 535 ==
LOC: C.ER 15:44 → C.9E 19:28 → C.6T 20:27
PROVIDERS: ADMIT Internal Medicine Nephrology; ATTEND Internal Medicine Nephrology
DX: S32.592A Other specified fracture of left pubis, initial encounter for closed fracture (principal); I50.33 Acute on chronic diastolic (congestive) heart failure; L03.115 Cellulitis of right lower limb; I11.0 Hypertensive heart disease with heart failure; E03.9 Hypothyroidism, unspecified; I89.0 Lymphedema, not elsewhere classified; M16.0 Bilateral primary osteoarthritis of hip; M41.9 Scoliosis, unspecified; M85.80 Other specified disorders of bone density and structure, unspecified site; M47.816 Spondylosis without myelopathy or radiculopathy, lumbar region; M17.12 Unilateral primary osteoarthritis, left knee; J45.909 Unspecified asthma, uncomplicated; F32.9 Major depressive disorder, single episode, unspecified; R26.89 Other abnormalities of gait and mobility; W07.XXXA Fall from chair, initial encounter; Z53.20 Procedure and treatment not carried out because of patient's decision for unspecified reasons; Y92.009 Unspecified place in unspecified non-institutional (private) residence as the place of occurrence of the external cause; Z87.891 Personal history of nicotine dependence; Z90.49 Acquired absence of other specified parts of digestive tract